=== PATIENT | female | born 1930 | race Caucasian/White ===

== ENCOUNTER 2016-07-25 23:35 | Emergency (ER) | payer MEDICARE, OTHER ==
[2014-02-26 12:47] VITALS: BMI 31.0
[~2016-07-25 23:35] MED LIST: ACETAMINOPHEN325 MG PO; ADVAIR 250/501 DISK INH; ALEVE220 MG PO; BAYER CHEWABLE81 MG PO; ELAVIL10 MG PO; GABAPENTIN100 MG PO; GLIPIZIDE10 MG PO; GLUCAGEN1 MG/VIAL IM; GLUCAGEN1 MG/VIAL SC; HUMULIN R100 U/ML SC; HYDROCODON-ACE1 EAC7 PO; HYZAAR 50-12.51 TAB PO; INSTA-GLUCOSE31 GM PO; IPRAT-ALBUT 0.5-3 ML UPD; LASIX20 MG PO; LASIX40 MG PO; LEVAQUIN250 MG PO; LISINOPRIL10 MG PO; LOPRESSOR25 MG PO; MACROBID100 MG PO; MELATONIN 3 MG1 TAB PO; MIRALAX17 GM PO; NORVASC10 MG PO; PLAVIX75 MG PO; PROTONIX40 MG PO; SALINE NASAL SP45 ML NS; TESSALON PERLE100 MG PO; TOPROL XL100 MG PO; VENTOLIN HFA18 GM INH; XANAX0.25 MG PO
== END 2016-07-26 02:25 | disposition home or self-care (01) ==
LOC: D.ER 23:35
DX: R07.9 Chest pain, unspecified (principal); M25.511 Pain in right shoulder; M25.551 Pain in right hip; I10 Essential (primary) hypertension; E78.5 Hyperlipidemia, unspecified; N28.9 Disorder of kidney and ureter, unspecified

== ENCOUNTER 2016-07-28 02:33 | Emergency (ER) | payer MEDICARE, OTHER ==
[2014-02-26 12:47] VITALS: BMI 31.0
== END 2016-07-28 05:00 | disposition home or self-care (01) ==
LOC: D.ER 02:33
DX: S01.81XA Laceration without foreign body of other part of head, initial encounter (principal); W19.XXXA Unspecified fall, initial encounter; S09.8XXA Other specified injuries of head, initial encounter; I10 Essential (primary) hypertension

== ENCOUNTER → 2016-08-01 09:31 | Outpatient (CLI) | payer MEDICARE, OTHER ==
[2014-02-26 12:47] VITALS: BMI 31.0
== END | disposition home or self-care (01) ==
LOC: D.CT 09:31
DX: E11.9 Type 2 diabetes mellitus without complications (principal)

== ENCOUNTER 2016-10-28 14:14 | Emergency (ER) | payer MEDICARE, OTHER ==
[2014-02-26 12:47] VITALS: BMI 31.0
[2016-10-28 15:06] LABS: BASOPHILS 0.8 % (0-2); EOSINOPHILS 5.9 % (0-7); HEMATOCRIT 37.3 % (36.0-48.0); HEMOGLOBIN 12.4 g/dL (12-16); IMMATURE GRANULOCYTES 0.4 % (0-5); LYMPHOCYTES 34.4 % (15-50); MCH 28.1 pg (26.0-34.0); MCHC 33.2 g/dL (31.0-37.0); MCV 84.6 fL (80.0-100.0); MEAN PLATELET VOLUME 8.4 fL (7.4-10.4); NEUTROPHILS 47.5 % (40-80); PLATELET COUNT 277 10x3/uL (130-400); RBC 4.41 10x6/uL (4.00-5.40); RDW 13.3 % (11.5-14.5); WBC 7.4 10x3/uL (4.8-10.8)
[2016-10-28 15:23] LABS: APPEARANCE CLEAR (CLEAR); COLOR YELLOW (YELLOW); LEUKOCYTE ESTERASE 1+ (NEGATIVE)
[2016-10-28 15:24] LABS: BILIRUBIN NEGATIVE (NEGATIVE); GLUCOSE NEGATIVE (NEGATIVE); KETONE NEGATIVE (NEGATIVE); NITRITE NEGATIVE (NEGATIVE); PROTEIN NEGATIVE (NEGATIVE); UROBILINOGEN NORMAL (NORMAL)
[2016-10-28 15:25] LABS: BACTERIA MODERATE /hpf (NONE SEEN); EPITHELIAL CELLS 0-5 /hpf (0-5); RED CELLS - URINE 0-5 /hpf (0-5); WHITE CELLS - URINE 0-5 /hpf (0-5)
[2016-10-28 15:38] LABS: ALBUMIN 3.4 g/dL (3.4-5.0); ALKALINE PHOSPHATASE 141 U/L (46-116); ALT (SGPT) 15 U/L (10-68); BILIRUBIN - TOTAL 0.24 mg/dL (0.2-1.3); CALC OSMOLALITY 275 mosm/kg (275-300); CALCIUM 10.6 mg/dL (8.5-10.1); CARBON DIOXIDE 23.7 mmol/L (21.0-32.0); CHLORIDE - SERUM 101 mmol/L (98-107); CREATININE - SERUM 1.9 mg/dL (0.6-1.3); POTASSIUM - SERUM 4.6 mmol/L (3.5-5.1); PROTEIN - SERUM 8.2 g/dL (6.4-8.2); SODIUM 133 mmol/L (136-145); UREA NITROGEN 21 mg/dL (7-18); eGFR NON AFRICAN AMERICAN 26 mL/min (90-120)
[2016-10-28 15:39] LABS: GLUCOSE 216 mg/dL (74-106)
[2016-10-28 15:50] LABS: CKMB 0.4 U/L (0.0-3.6); CREATINE KINASE 22 UL (21-215)
[2016-10-28 15:51] LABS: TROPONIN-I < 0.017 ng/mL (0.000-0.060)
== END 2016-10-28 18:30 | disposition home or self-care (01) ==
LOC: D.ER 14:14
PROVIDERS: Family Medicine
DX: R53.1 Weakness (principal); F41.9 Anxiety disorder, unspecified; I10 Essential (primary) hypertension; R00.1 Bradycardia, unspecified

== ENCOUNTER 2017-09-27 08:31 | Emergency (ER) | payer MEDICARE, OTHER ==
[~2017-09-27] VITALS: Ht 160 cm; Wt 81.8 kg
[2017-09-27 08:33] VITALS: Ht 160 cm; Wt 81.8 kg
[2017-09-27] MEDS ORDERED: CATAPRES0.1 MG PO (08:34)
[2017-09-27] MEDS ORDERED: LISINOPRIL10 MG PO (08:35)
[2017-09-27 09:37] LABS: BASOPHILS 1.3 % (0-2); EOSINOPHILS 7.1 % (0-7); HEMATOCRIT 40.9 % (36.0-48.0); HEMOGLOBIN 13.9 g/dL (12-16); IMMATURE GRANULOCYTES 0.3 % (0-5); LYMPHOCYTES 28.7 % (15-50); MCH 28.4 pg (26.0-34.0); MCV 83.5 fL (80.0-100.0); MEAN PLATELET VOLUME 8.7 fL (7.4-10.4); MONOCYTES 12.6 % (2-11); PLATELET COUNT 268 10x3/uL (130-400); RDW 13.8 % (11.5-14.5); WBC 7.9 10x3/uL (4.8-10.8)
[2017-09-27 09:53] LABS: ALKALINE PHOSPHATASE 123 U/L (46-116); ALT (SGPT) 20 U/L (10-68); BILIRUBIN - TOTAL 0.29 mg/dL (0.2-1.3); CALC OSMOLALITY 278 mosm/kg (275-300); CALCIUM 10.4 mg/dL (8.5-10.1); CARBON DIOXIDE 25.1 mmol/L (21.0-32.0); CHLORIDE - SERUM 101 mmol/L (98-107); CREATININE - SERUM 1.8 mg/dL (0.6-1.3); GLUCOSE 232 mg/dL (74-106); POTASSIUM - SERUM 4.8 mmol/L (3.5-5.1); PROTEIN - SERUM 7.7 g/dL (6.4-8.2); SODIUM 133 mmol/L (136-145); UREA NITROGEN 28 mg/dL (7-18); eGFR NON AFRICAN AMERICAN 28 mL/min (90-120)
[2017-09-27 09:55] LABS: APTT 27.4 SECONDS (22.8-39.4); INR 1.02 (0.85-1.17)
[2017-09-27 10:04] LABS: CREATINE KINASE 10 UL (21-215)
[2017-09-27 10:07] LABS: TROPONIN-I < 0.017 ng/mL (0.000-0.060)
[2017-09-27 15:01] VITALS: BP 135/57
== END 2017-09-27 15:02 ==
LOC: D.ER 08:31
PROVIDERS: Family Medicine
DX: I10 Essential (primary) hypertension (principal); R51 Headache; E11.9 Type 2 diabetes mellitus without complications; I50.9 Heart failure, unspecified; I49.3 Ventricular premature depolarization

== ENCOUNTER 2018-01-25 08:00 | Inpatient (IN) | payer MEDICARE, OTHER ==
[~2018-01-25] VITALS: Ht 160 cm; Wt 70.9 kg
--- NOTE | ~2018-01-25 | MORECARE ---
CASE MANAGEMENT DISCHARGE SUMMARY PATIENT: ROSY BANERJEE UNIT: [id number] ADM DATE: 01/25/18 AGE: 87 : [birth year] SEX: F ROOM/BED: D.9192 AUTHOR: TITO,DOC PHYSICIAN: REFERRING PHYSICIAN: TE TRAN MD DATE OF SERVICE: 02/01/18 Discharge Plan Patient Name: ROSY BANERJEE Facility: [facility] : 1930 Planned Disposition: Nursing Facility [facility] Cert Anticipated Discharge Date: 02/01/18 Discharge Date: Expected LOS: 7 Initial Reviewer: [id number] Initial Review Date: 01/25/2018 Generated: 02/01/18 12:48 pm Comments DCP- Discharge Planning Updated by [id number]: Morales Boogie on 01/31/18 3:[address] Patient Name: ROSY BANERJEE Encounter No: [id number] : 1930 Primary Insurance: MEDICARE A & B Anticipated DC Date: Planned Disposition: Nursing Facility [facility] Cert External Planned Provider: [facility], LONG TERM CARE MEDICAID BED DCP follow-up note: [facility] CALLED , REQUESTED UPDATE; CM REVIEWED LATEST NOTES WITH JUAN M. CM FAXED HOSPITAL CARE UPDATE TO JUAN M AT [facility], . FOR DISCHARGE, FAX DISCHARGE INFORMATION TO [place] AT [phone]; NURSE REPORT TO BE CALLED TO [facility] AT [phone]. [place] TO ARRANGE VAN TRANSPORTATION. Moralse Boogie CASE MANAGEMENT DCP- Discharge Planning Updated by [id number]: Morales Boogie on 01/26/18 9:[address] Patient Name: ROSY BANERJEE Encounter No: [id number] : 1930 Primary Insurance: MEDICARE A & B Anticipated DC Date: Planned Disposition: Nursing Facility [facility] Cert External Planned Provider: [facility], LONG TERM CARE MEDICAID BED DCP follow-up note: [facility] FAXED HOSPITAL CARE UPDATE TO [facility], . FOR DISCHARGE, FAX DISCHARGE INFORMATION TO [place] AT [phone]; NURSE REPORT TO BE CALLED TO [facility] AT [phone]. [place] TO ARRANGE VAN TRANSPORTATION. Morales Boogie, CASE MANAGEMENT DCP- Discharge Planning Updated by [id number]: Madelyn Ho on 01/25/18 9:[address] Patient Name: ROSY BANERJEE Admission Status: ER Accout number: [id number] Admission Date: 01-25-2018 : 1930 Admission Diagnosis: Attending: TE TRAN Current LOS: 1 Anticipated DC Date: Planned Disposition: Primary Insurance: MEDICARE A & B Discharge Planning Comments: CM MET WITH PATIENT IN THE ER ABOUT DC PLANNING/NEEDS. PATIENT PLANS TO RETURN TO [facility] WHEN DISCHARGED. STATES SHE LIVES THERE. PATIENT STATES IS AMBULATORY BUT USES A CANE OR PUSHES A WHEEL CHAIR AROUND. CM WILL FOLLOW AND ASSIST NEEDED WITH DC PLANNING NEEDS. Apple Press Operator: Madelyn Ho DCPIA - Discharge Planning Initial Assessment Updated by [email or web address]: Madelyn Ho on 01/25/18 10:24 am * Is the patient Alert and Oriented? Yes * PCP CHELSEA * Pharmacy [facility] * Preadmission Environment Senior Care Intermediate * Facility Name [facility] * ADLs Partial Dependent * Partial ADLs (Assistance needed) Ambulation * Equipment Cane Nebulizer Oxygen Wheelchair * List name and contact numbers for known caregivers / representatives who currently or will assist patient after discharge: FEI CARLISLE, DAUGHTER, * Community resources currently utilized None * Can the patient safely return to the preadmission environment? Yes * Has this patient been hospitalized within the prior 30 days at any hospital? No Last DP export: 01/31/18 3:59 Patient Name: ROSY BANERJEE Page 80905 at 1148 All edits/amendments must be made on the electronic document DICTATION DATE: 02/01/18 1148 DINKEY LOCOMOTIVE OPERATOR: VIOLET 02/01/18 1148 RPT#: [id number] DC DATE: STATUS: ADM IN [facility] [address] [place] [address] END OF REPORT
--- NOTE | ~2018-01-25 | MORECARE ---
CASE MANAGEMENT DISCHARGE SUMMARY PATIENT: ROSY BANERJEE UNIT: [id number] ADM DATE: 01/25/18 AGE: 87 : [birth year] SEX: F ROOM/BED: D.2128 AUTHOR: GENESIS FRANCIS PHYSICIAN: REFERRING PHYSICIAN: TE TRAN MD DATE OF SERVICE: 01/25/18 Discharge Plan Patient Name: ROSY BANERJEE Facility: [facility]:[place] : 1930 Planned Disposition: Anticipated Discharge Date: Discharge Date: Expected LOS: Initial Reviewer: [email or web address] Initial Review Date: 01/25/2018 Generated: 01/25/18 11:25 am DCPIA - Discharge Planning Initial Assessment Updated by [email or web address]: Madelyn Ho on 01/25/18 10:24 am * Is the patient Alert and Oriented? Yes * PCP CHELSEA * Pharmacy [facility] * Preadmission Environment Fuel Conversion Technician Fpc * Facility Name [facility] * ADLs Partial Dependent * Partial ADLs (Assistance needed) Ambulation * Equipment Cane Nebulizer Oxygen Wheelchair * List name and contact numbers for known caregivers / representatives who currently or will assist patient after discharge: EFI CARLISLE, DAUGHTER, * Community resources currently utilized None * Can the patient safely return to the preadmission environment? Yes * Has this patient been hospitalized within the prior 30 days at any hospital? No Patient Name: ROSY BANERJEE Page 31999 at 1025 All edits/amendments must be made on the electronic document DICTATION DATE: 01/25/18 1025 SORT WORKER: VIOLET 01/25/18 1025 RPT#: [id number] DC DATE: STATUS: ADM IN [facility] [address] [place] [address] END OF REPORT
--- NOTE | ~2018-01-25 | MORECARE ---
CASE MANAGEMENT DISCHARGE SUMMARY PATIENT: ROSY BANERJEE UNIT: [id number] ADM DATE: 01/25/18 AGE: 87 : [birth year] SEX: F ROOM/BED: D.2604 AUTHOR: TITO,DOC PHYSICIAN: REFERRING PHYSICIAN: TE TRAN MD DATE OF SERVICE: 02/03/18 Discharge Plan Patient Name: ROSY BANERJEE Facility: [facility]:[place] : 1930 Planned Disposition: Nursing Facility [facility] Cert Anticipated Discharge Date: 02/01/18 Discharge Date: 02/03/2018 Expected LOS: 7 Initial Reviewer: [id number] Initial Review Date: 01/25/2018 Generated: 02/03/18 7:18 pm Comments DCP- Discharge Planning Updated by [email or web address]: Alda Silva on 02/03/18 5:[address] LATE ENTRY 1030 TC TO [facility] TO ADVISE OF DISCHARGE. TC TO [phone] FAX [phone]. CM FAXED DISCHARGE SUMMARY AND MD DISCHARGE ORDERS. DCP- Discharge Planning Updated by [email or web address]: Morales Boogie on 02/01/18 11:[address] Patient Name: ROSY BANERJEE Encounter No: [id number] : 1930 Primary Insurance: MEDICARE A & B Anticipated DC Date: 02-01-2018 Planned Disposition: Nursing Facility [facility] Cert External Planned Provider: [facility], [facility] C[facility] MEDICAID BED DCP follow-up note: CM RECEIVED INPATIENT REHAB PRESCREENING ORDER, REVIEWED CHART WHICH INDICATES PT IS NOT ELIGIBLE FOR INPATIENT REHAB AND THAT THERAPY IN HOSPITAL HAS SIGNED OFF ALREADY. CM SPOKE TO PT IN ROOM, NOTIIFED OF ABOVE. PT REPORTS SHE WILL RETURN TO [facility] WHERE SHE LIVES. PT DOES NOT THINK SHE IS INTERESTED IN THERAPY SERVICES AND DOES NOT KNOW HOW MUCH SHE COULD DO ANYWAY. PT REPORTS BEING MOSTLY INDEPENDENT TAKING CARE OF HER PERSONAL NEEDS AT THE SNF AND EVEN MAKES HER OWN BED EACH MORNING. PT STATES SHE ASKED DR. TRAN FOR A COUPLE OF MORE DAYS IN THE HOSPITAL BECAUSE SHE DID NOT WANT TO BE DISCHARGED BACK TOO SOON AND REPORTS SHE USUALLY ONLY GETS 5 DAYS OF ANTIBIOTICS AND FELT SHE NEEDED 7 TO GET RID OF HER "BAD PNEUMONIA." IMPORTANT MESSAGE FROM MEDICARE PROVIDED AND EXPLAINED. CM CALLED AND SPOKE TO JUAN M OF [facility]. THEY WILL REVIEW UPDATE CM FAXED YESTERDAY. CM INFORMED JUAN M THAT PT MAY DISCHARGE TODAY. FOR DISCHARGE, FAX DISCHARGE INFORMATION TO [place] AT [phone]; NURSE REPORT TO BE CALLED TO [facility] AT [phone]. [place] TO ARRANGE VAN TRANSPORTATION. Morales Boogie CASE MANAGEMENT DCP- Discharge Planning Updated by [email or web address]: Morales Boogie on 01/31/18 3:[address] Patient Name: ROSY BANERJEE Encounter No: [id number] : 1930 Primary Insurance: MEDICARE A & B Anticipated DC Date: Planned Disposition: Nursing Facility [facility] Cert External Planned Provider: [facility], LONG TERM CARE MEDICAID BED DCP follow-up note: JUAN M OF [place] CALLED CM, REQUESTED UPDATE; CM REVIEWED LATEST NOTES WITH JUAN M. CM FAXED HOSPITAL CARE UPDATE TO JUAN M AT [facility], . FOR DISCHARGE, FAX DISCHARGE INFORMATION TO [facility] AT [phone]; NURSE REPORT TO BE CALLED TO [facility] AT [phone]. [place] TO ARRANGE VAN TRANSPORTATION. Morales Boogie CASE MANAGEMENT DCP- Discharge Planning Updated by [email or web address]: Morales Boogie on 01/26/18 9:[address] Patient Name: ROSY BANERJEE Encounter No: [id number] : 1930 Primary Insurance: MEDICARE A & B Anticipated DC Date: Planned Disposition: Nursing Facility [facility] Cert External Planned Provider: [facility], LONG TERM CARE MEDICAID BED DCP follow-up note: CM FAXED HOSPITAL CARE UPDATE TO JUAN M AT [facility], . FOR DISCHARGE, FAX DISCHARGE INFORMATION TO [facility] AT [phone]; NURSE REPORT TO BE CALLED TO [facility] AT [phone]. [facility] TO ARRANGE VAN TRANSPORTATION. Morales Boogie CASE MANAGEMENT DCP- Discharge Planning Updated by [email or web address]: Madelyn Ho on 01/25/18 9:[address] Patient Name: ROSY BANEREJE Admission Status: ER Accout number: [id number] Admission Date: 01-25-2018 : 1930 Admission Diagnosis: Attending: TE TRAN Current LOS: 1 Anticipated DC Date: Planned Disposition: Primary Insurance: MEDICARE A & B Discharge Planning Comments: CM MET WITH PATIENT IN THE ER ABOUT DC PLANNING/NEEDS. PATIENT PLANS TO RETURN TO [facility] WHEN DISCHARGED. STATES SHE LIVES THERE. PATIENT STATES IS AMBULATORY BUT USES A CANE OR PUSHES A WHEEL CHAIR AROUND. CM WILL FOLLOW AND ASSIST NEEDED WITH DC PLANNING NEEDS. Label Rewinder: Madelyn Ho DCPIA - Discharge Planning Initial Assessment Updated by [email or web address]: Madelyn Ho on 01/25/18 10:24 am * Is the patient Alert and Oriented? Yes * PCP CHELSEA * Pharmacy [facility] * Preadmission Environment [facility] * Facility Name [facility] * ADLs Partial Dependent * Partial ADLs (Assistance needed) Ambulation * Equipment Cane Nebulizer Oxygen Wheelchair * List name and contact numbers for known caregivers / representatives who currently or will assist patient after discharge: FEI CARLISLE, DAUGHTER, * Community resources currently utilized None * Can the patient safely return to the preadmission environment? Yes * Has this patient been hospitalized within the prior 30 days at any hospital? No Coverage Notice Reviewer: [id number] Noah Boogie Notice Issued Date-Time: 02/01/2018 11:00 Notice Type: IM Discharge Notice Notice Delivered To: Patient Relationship to Patient: Export Clerk Name: Delivery Method: HAND - Hand Delivered Zaynab Days: Prior Verbal Notification: Recipient Understood Notice: Yes Recipient Signature: Yes Med Rec Note Co-signed by Attending: Coverage Notice Comment: Last DP export: 02/01/18 11:08 Patient Name: ROSY BANERJEE Page 82432 at 1818 All edits/amendments must be made on the electronic document DICTATION DATE: 02/03/181816 QUILLER RUNNER: VIOLET 02/03/181816 RPT#: [id number] DC DATE:02/03/18 STATUS: DIS IN [facility] [address] [place] [id number] END OF REPORT
--- NOTE | ~2018-01-25 | MORECARE ---
CASE MANAGEMENT DISCHARGE SUMMARY PATIENT: ROSY BANERJEE UNIT: [id number] ADM DATE: 01/25/18 AGE: 87 : [birth year] SEX: F ROOM/BED: D.4121 AUTHOR: TITO,DOC PHYSICIAN: REFERRING PHYSICIAN: TE TRAN MD DATE OF SERVICE: 02/01/18 Discharge Plan Patient Name: ROSY BANERJEE Facility: [facility] : 1930 Planned Disposition: Nursing Facility [facility] Cert Anticipated Discharge Date: 02/01/18 Discharge Date: Expected LOS: 7 Initial Reviewer: [id number] Initial Review Date: 01/25/2018 Generated: 02/01/18 1:08 pm Comments DCP- Discharge Planning Updated by [email or web address]: Morales Boogie on 02/01/18 11:[address] Patient Name: ROSY BANERJEE Encounter No: [id number] : 1930 Primary Insurance: MEDICARE A & B Anticipated DC Date: 02-01-2018 Planned Disposition: Nursing Facility [facility] Cert External Planned Provider: [facility], LONG TERM CARE MEDICAID BED DCP follow-up note: CM RECEIVED INPATIENT REHAB PRESCREENING ORDER, REVIEWED CHART WHICH INDICATES PT IS NOT ELIGIBLE FOR INPATIENT REHAB AND THAT THERAPY IN HOSPITAL HAS SIGNED OFF ALREADY. CM SPOKE TO PT IN ROOM, NOTIIFED OF ABOVE. PT REPORTS SHE WILL RETURN TO [facility] WHERE SHE LIVES. PT DOES NOT THINK SHE IS INTERESTED IN THERAPY SERVICES AND DOES NOT KNOW HOW MUCH SHE COULD DO ANYWAY. PT REPORTS BEING MOSTLY INDEPENDENT TAKING CARE OF HER PERSONAL NEEDS AT THE PRISON AND EVEN MAKES HER OWN BED EACH MORNING. PT STATES SHE ASKED DR. TRAN FOR A COUPLE OF MORE DAYS IN THE HOSPITAL BECAUSE SHE DID NOT WANT TO BE DISCHARGED BACK TOO SOON AND REPORTS SHE USUALLY ONLY GETS 5 DAYS OF ANTIBIOTICS AND FELT SHE NEEDED 7 TO GET RID OF HER "BAD PNEUMONIA." IMPORTANT MESSAGE FROM MEDICARE PROVIDED AND EXPLAINED. CM CALLED AND SPOKE TO JUAN M OF [facility]. THEY WILL REVIEW UPDATE CM FAXED YESTERDAY. CM INFORMED JUAN M THAT PT MAY DISCHARGE TODAY. FOR DISCHARGE, FAX DISCHARGE INFORMATION TO [facility] AT [phone]; NURSE REPORT TO BE CALLED TO [facility] AT [phone]. [facility] TO ARRANGE VAN TRANSPORTATION. Morales Boogie CASE MANAGEMENT DCP- Discharge Planning Updated by [email or web address]: Morales Boogie on 01/31/18 3:[address] Patient Name: ROSY BANERJEE Encounter No: [id number] : 1930 Primary Insurance: MEDICARE A & B Anticipated DC Date: Planned Disposition: Nursing Facility [facility] Cert External Planned Provider: [facility], LONG TERM CARE MEDICAID BED DCP follow-up note: [facility] CALLED CM, REQUESTED UPDATE; CM REVIEWED LATEST NOTES WITH JUAN M. CM FAXED HOSPITAL CARE UPDATE TO [facility] AT [facility], . FOR DISCHARGE, FAX DISCHARGE INFORMATION TO [facility] AT [phone]; NURSE REPORT TO BE CALLED TO [facility] AT [phone]. [facility] TO ARRANGE VAN TRANSPORTATION. Morales Boogie CASE MANAGEMENT DCP- Discharge Planning Updated by [id number]: Morales Boogie on 01/26/18 9:[address] Patient Name: ROSY BANERJEE Encounter No: [id number] : 1930 Primary Insurance: MEDICARE A & B Anticipated DC Date: Planned Disposition: Nursing Facility [facility] External Planned Provider: [facility], LONG TERM CARE MEDICAID BED DCP follow-up note: CM FAXED HOSPITAL CARE UPDATE TO [facility] AT [facility], . FOR DISCHARGE, FAX DISCHARGE INFORMATION TO [facility] AT [phone]; [facility] AT [phone]. [facility] TO ARRANGE VAN TRANSPORTATION. Morales Boogie CASE MANAGEMENT DCP- Discharge Planning Updated by [id number]: Madelyn Ho on 01/25/18 9:[address] Patient Name: ROSY BANERJEE Admission Status: ER Accout number: [id number] Admission Date: 01-25-2018 : 1930 Admission Diagnosis: Attending: TE TRAN Current LOS: 1 Anticipated DC Date: Planned Disposition: Primary Insurance: MEDICARE A & B Discharge Planning Comments: CM MET WITH PATIENT IN THE ER ABOUT DC PLANNING/NEEDS. PATIENT PLANS TO RETURN TO [facility] WHEN DISCHARGED. STATES SHE LIVES THERE. PATIENT STATES IS AMBULATORY BUT USES A CANE OR PUSHES A WHEEL CHAIR AROUND. CM WILL FOLLOW AND ASSIST NEEDED WITH DC PLANNING NEEDS. Elevator Constructor Electric: Madelyn [place] DCPIA - Discharge Planning Initial Assessment Updated by [email or web address]: Madelyn Ho on 01/25/18 10:24 am * Is the patient Alert and Oriented? Yes * PCP CHELSEA * Pharmacy [facility] * Preadmission Environment Exterminator Long Term * Facility Name [facility] * ADLs Partial Dependent * Partial ADLs (Assistance needed) Ambulation * Equipment Cane Nebulizer Oxygen Wheelchair * List name and contact numbers for known caregivers / representatives who currently or will assist patient after discharge: FEI CARLISLE, DAUGHTER, * Community resources currently utilized None * Can the patient safely return to the preadmission environment? Yes * Has this patient been hospitalized within the prior 30 days at any hospital? No Coverage Notice Reviewer: [id number] Noah Boogie Notice Issued Date-Time: 02/01/2018 11:00 Notice Type: IM Discharge Notice Notice Delivered To: Patient Relationship to Patient: Optometric Coordinator Name: Delivery Method: HAND - Hand Delivered Zaynab Days: Prior Verbal Notification: Recipient Understood Notice: Yes Recipient Signature: Yes Med Rec Note Co-signed by Attending: Coverage Notice Comment: Last DP export: 02/01/18 10:48 Patient Name: ROSY BANERJEE Page 55830 at 1208 All edits/amendments must be made on the electronic document DICTATION DATE: 02/01/18 1208 RESIDENTIAL RECYCLE DRIVER: VIOLET 02/01/18 1208 RPT#: [id number] DC DATE: STATUS: ADM IN [facility] [address] [place] [address] END OF REPORT
--- NOTE | ~2018-01-25 | MORECARE ---
CASE MANAGEMENT DISCHARGE SUMMARY PATIENT: ROSY BANERJEE UNIT: [id number] ADM DATE: 01/25/18 AGE: 87 : [birth year] SEX: F ROOM/BED: D.8849 AUTHOR: TITO,DOC PHYSICIAN: REFERRING PHYSICIAN: TE TRAN MD DATE OF SERVICE: 01/31/18 Discharge Plan Patient Name: ROSY BANERJEE Facility: [facility] : 1930 Planned Disposition: Nursing Facility [facility] Cert Anticipated Discharge Date: Discharge Date: Expected LOS: Initial Reviewer: [id number] Initial Review Date: 01/25/2018 Generated: 01/31/18 5:59 pm Comments DCP- Discharge Planning Updated by [id number]: Morales Boogie on 01/31/18 3:[address] Patient Name: ROSY BANERJEE Encounter No: [id number] : 1930 Primary Insurance: MEDICARE A & B Anticipated DC Date: Planned Disposition: Nursing Facility [facility] Cert External Planned Provider: [facility], LONG TERM CARE MEDICAID BED DCP follow-up note: [facility] CALLED , REQUESTED UPDATE; CM REVIEWED LATEST NOTES WITH JUAN M. CM FAXED HOSPITAL CARE UPDATE TO [facility], . FOR DISCHARGE, FAX DISCHARGE INFORMATION TO [facility] AT [phone]; NURSE REPORT TO BE CALLED TO [facility] AT [phone]. [facility] TO ARRANGE VAN TRANSPORTATION. Morales Boogie, CASE MANAGEMENT DCP- Discharge Planning Updated by [email or web address]: Morales Boogie on 01/26/18 9:[address] Patient Name: ROSY BANERJEE Encounter No: [id number] : 1930 Primary Insurance: MEDICARE A & B Anticipated DC Date: Planned Disposition: Nursing Facility [facility] Cert External Planned Provider: [facility], LONG TERM CARE MEDICAID BED DCP follow-up note: CM FAXED HOSPITAL CARE UPDATE TO [facility], . FOR DISCHARGE, FAX DISCHARGE INFORMATION TO [facility] AT [phone]; NURSE REPORT TO BE CALLED TO [facility] AT [phone]. [facility] TO ARRANGE VAN TRANSPORTATION. Morales Boogie CASE MANAGEMENT DCP- Discharge Planning Updated by [id number]: Madelyn Ho on 01/25/18 9:[address] Patient Name: ROSY BANERJEE Admission Status: ER Accout number: [id number] Admission Date: 01-25-2018 : 1930 Admission Diagnosis: Attending: TE TRAN Current LOS: 1 Anticipated DC Date: Planned Disposition: Primary Insurance: MEDICARE A & B Discharge Planning Comments: CM MET WITH PATIENT IN THE ER ABOUT DC PLANNING/NEEDS. PATIENT PLANS TO RETURN TO [facility] WHEN DISCHARGED. STATES SHE LIVES THERE. PATIENT STATES IS AMBULATORY BUT USES A CANE OR PUSHES A WHEEL CHAIR AROUND. CM WILL FOLLOW AND ASSIST NEEDED WITH DC PLANNING NEEDS. Taxi Servicer: Madelyn Ho DCPIA - Discharge Planning Initial Assessment Updated by [id number]: Madelyn Ho on 01/25/18 10:24 am * Is the patient Alert and Oriented? Yes * PCP CHELSEA * Pharmacy [facility] * Preadmission Environment Intermediate Custodial * Facility Name [facility] * ADLs Partial Dependent * Partial ADLs (Assistance needed) Ambulation * Equipment Cane Nebulizer Oxygen Wheelchair * List name and contact numbers for known caregivers / representatives who currently or will assist patient after discharge: FEI CARLISLE, DAUGHTER, * Community resources currently utilized None * Can the patient safely return to the preadmission environment? Yes * Has this patient been hospitalized within the prior 30 days at any hospital? No Last DP export: 01/26/18 9:30 Patient Name: ROSY BANERJEE Page 66623 at 165 All edits/amendments must be made on the electronic document DICTATION DATE: 01/31/181658 CONSTRUCTION INSPECTOR: VIOLET 01/31/181658 RPT#: [id number] DC DATE: STATUS: ADM IN [facility] [address] [place] [address] END OF REPORT
--- NOTE | ~2018-01-25 | MORECARE ---
CASE MANAGEMENT DISCHARGE SUMMARY PATIENT: ROSY BANERJEE UNIT: [id number] ADM DATE: 01/25/18 AGE: 87 : [birth year] SEX: F ROOM/BED: D.4726 AUTHOR: TITO,DOC PHYSICIAN: REFERRING PHYSICIAN: TE TRAN MD DATE OF SERVICE: 01/26/18 Discharge Plan Patient Name: ROSY BANERJEE Facility: [facility] : 1930 Planned Disposition: Anticipated Discharge Date: Discharge Date: Expected LOS: Initial Reviewer: [email or web address] Initial Review Date: 01/25/2018 Generated: 01/26/18 11:01 am DCP- Discharge Planning Updated by [email or web address]: Madelyn Ho on 01/25/18 9:[address] Patient Name: ROSY BANERJEE Admission Status: ER Accout number: [id number] Admission Date: 01-25-2018 : 1930 Admission Diagnosis: Attending: TE TRAN Current LOS: 1 Anticipated DC Date: Planned Disposition: Primary Insurance: MEDICARE A & B Discharge Planning Comments: CM MET WITH PATIENT IN THE ER ABOUT DC PLANNING/NEEDS. PATIENT PLANS TO RETURN TO [facility] WHEN DISCHARGED. STATES SHE LIVES THERE. PATIENT STATES IS AMBULATORY BUT USES A CANE OR PUSHES A WHEEL CHAIR AROUND. CM WILL FOLLOW AND ASSIST NEEDED WITH DC PLANNING NEEDS. Pump Erector Helper: Madelyn Ho DCPIA - Discharge Planning Initial Assessment Updated by [id number]: Madelyn Ho on 01/25/18 10:24 am * Is the patient Alert and Oriented? Yes * PCP CHELSEA * Pharmacy [facility] * Preadmission Environment [facility] * Facility Name [facility] * ADLs Partial Dependent * Partial ADLs (Assistance needed) Ambulation * Equipment Cane Nebulizer Oxygen Wheelchair * List name and contact numbers for known caregivers / representatives who currently or will assist patient after discharge: FEI CARLISLE, DAUGHTER, * Community resources currently utilized None * Can the patient safely return to the preadmission environment? Yes * Has this patient been hospitalized within the prior 30 days at any hospital? No External Providers [facility] Next Contact Date: 01/26/2018 Service Request Date: Service Type: Resolution: Reviewer: Comments: Last DP export: 01/25/18 9:34 Patient Name: ROSY BANERJEE Page 47359 at 1001 All edits/amendments must be made on the electronic document DICTATION DATE: 01/26/18 1000 PSYCH ARNP: VIOLET 01/26/18 1000 RPT#: [id number] DC DATE: STATUS: ADM IN [facility] [address] [place] [address] END OF REPORT
--- NOTE | ~2018-01-25 | EC ---
PATIENT:ROSY BANERJEE DATE OF SERVICE: 01/25/18 SEX: F MEDICAL RECORD: [id number] DATE OF : [birth year] LOCATION:D.M2 D.212 AGE OF PATIENT: 87 ADMISSION DATE: 01/25/18 REFERRING PHYSICIAN: INTERPRETING PHYSICIAN: AZAM PORTER MD ECHOCARDIOGRAM REPORT ECHO CHARGES 4 ECHO COMPLETE Date: 01/25/18 CLINICAL DIAGNOSIS: SOB/ELEVATED BNP ECHOCARDIOGRAPHIC MEASUREMENTS (adult normal given) AC root (d.<3.7cm) 3.9 cm LV Septum d (<1.2 cm> 1.6 cm Valve Excursion 1.6 cm LV Septum (systole) 1.8 cm Left Atria (s.<4.0cm> 4.6 cm LVPW d(<1.2cm) 1.6 cm RV (d.<2.3cm) 3.9 cm LVPW (sytole) 2.0 cm LV diastole(<5.6CM) 4.8 cm MV E-F(>70mm/sec) cm LV systole 3.3 cm LVOT Diameter 1.7 cm MV exc.(>10mm) 1.2 cm Est.ejection fraction (50-75%) % DOPPLER: LVIT cm/sec A 149 cm/sec E 173 cm/sec LA cm/sec RVSP 70 mmHg LVOT 103 cm/sec AOP1/2T m/s Asc. Ao 228 cm/sec RVOT 82 cm/sec RA cm/sec PA 144 cm/sec AV Gradient Peak 20.80mmHg AV Mean 10.03mmHg AV Area 1.4 cm MV Gradient Peak 16.39mmHg MV Mean 5.38 mmHg MV Area cm COMMENTS: Reel Hooker: Tate LICEA Meter Technician: 1 Dr. Porter TAPE# PACS Pericardial Effusion N DATE OF SERVICE: 01/25/2018 FINDINGS: 1. Left ventricular chamber size is within normal limits. Left ventricular systolic function is normal. Overall ejection fraction is estimated at 60%. 2. Left atrium, right atrium, and right ventricular sizes are dilated. Left atrium measures 4.6 cm. 3. Valvular structures: Aortic valve demonstrates mild calcific aortic stenosis. Valve area calculates to 1.4 cm-squared. There is a gradient of 20 mm across the valve. The remaining valvular structures have normal structure ECHOCARDIOGRAM REPORT [id number] LAFEVERS,CLEDA and motion. 4. Doppler interrogation else peralta reveals mild aortic insufficiency, [id number] mitral regurgitation, and moderate tricuspid regurgitation. No other valvular insufficiency or stenosis. Pulmonary systolic pressure is estimated at 70 mmHg. 5. No evidence of pericardial effusion or left ventricular thrombus. TRANSINT:[id number] Voice Confirmation ID: [id number] DOCUMENT ID: [id number] AZMA PORTER MD at 0941 CC: [id number] DICTATION DATE: 01/25/18 1539 [employer] DISPATCHER: 01/25/18 1852 ADM IN [facility] [address] [id number]
--- NOTE | ~2018-01-25 | MORECARE ---
CASE MANAGEMENT DISCHARGE SUMMARY PATIENT: ROSY BANERJEE UNIT: [id number] ADM DATE: 01/25/18 AGE: 87 : [birth year] SEX: F ROOM/BED: D.5820 AUTHOR: TITODOC PHYSICIAN: REFERRING PHYSICIAN: TE TRAN MD DATE OF SERVICE: 01/25/18 Discharge Plan Patient Name: ROSY BANERJEE Facility: [facility]:[place] : 1930 Planned Disposition: Anticipated Discharge Date: Discharge Date: Expected LOS: Initial Reviewer: [email or web address] Initial Review Date: 01/25/2018 Generated: 01/25/18 11:34 am Comments DCP- Discharge Planning Updated by [email or web address]: Madelyn Ho on 01/25/18 9:[address] Patient Name: ROSY BANERJEE Admission Status: ER Accout number: [id number] Admission Date: 01-25-2018 : 1930 Admission Diagnosis: Attending: TE TRAN Current LOS: 1 Anticipated DC Date: Planned Disposition: Primary Insurance: MEDICARE A & B Discharge Planning Comments: CM MET WITH PATIENT IN THE ER ABOUT DC PLANNING/NEEDS. PATIENT PLANS TO RETURN TO [facility] WHEN DISCHARGED. STATES SHE LIVES THERE. PATIENT STATES IS AMBULATORY BUT USES A CANE OR PUSHES A WHEEL CHAIR AROUND. CM WILL FOLLOW AND ASSIST NEEDED WITH DC PLANNING NEEDS. Change Lead: Madelyn Ho DCPIA - Discharge Planning Initial Assessment Updated by [email or web address]: Madelyn Ho on 01/25/18 10:24 am * Is the patient Alert and Oriented? Yes * PCP CHELSEA * Pharmacy [facility] * Preadmission Environment [facility] * Facility Name [facility] * ADLs Partial Dependent * Partial ADLs (Assistance needed) Ambulation * Equipment Cane Nebulizer Oxygen Wheelchair * List name and contact numbers for known caregivers / representatives who currently or will assist patient after discharge: FEI CARLISLE, DAUGHTER, * Community resources currently utilized None * Can the patient safely return to the preadmission environment? Yes * Has this patient been hospitalized within the prior 30 days at any hospital? No Last DP export: 01/25/18 9:25 Patient Name: ROSY BANERJEE Page [phone] at 1034 All edits/amendments must be made on the electronic document DICTATION DATE: 01/25/18 103 FLOOR CARE SPECIALIST: VIOLET 01/25/18 1034 RPT#: [id number] DC DATE: STATUS: ADM IN [facility] [address] [place] [address] END OF REPORT
--- NOTE | ~2018-01-25 | MORECARE ---
CASE MANAGEMENT DISCHARGE SUMMARY PATIENT: ROSY BANERJEE UNIT: [id number] ADM DATE: 01/25/18 AGE: 87 : [birth year] SEX: F ROOM/BED: D.5610 AUTHOR: TITO,DOC PHYSICIAN: REFERRING PHYSICIAN: TE TRAN MD DATE OF SERVICE: 02/05/18 Discharge Plan Patient Name: ROSY BANERJEE Facility: [facility]:[place] : 1930 Planned Disposition: Nursing Facility DICK Cert Anticipated Discharge Date: 02/03/18 Discharge Date: 02/03/2018 Expected LOS: 9 Initial Reviewer: [email or web address] Initial Review Date: 01/25/2018 Generated: 02/05/18 12:21 pm Comments DCP- Discharge Planning Updated by [id number]: Alda Silva on 02/03/18 5:[address] LATE ENTRY 1030 TC TO [facility] TO ADVISE OF DISCHARGE. TC TO [phone] FAX [phone]. CM FAXED DISCHARGE SUMMARY AND MD DISCHARGE ORDERS. DCP- Discharge Planning Updated by [email or web address]: Morales Boogie on 02/01/18 11:[address] Patient Name: ROSY BANERJEE Encounter No: [id number] : 1930 Primary Insurance: MEDICARE A & B Anticipated DC Date: 02-01-2018 Planned Disposition: Nursing Facility D[facility] Cert External Planned Provider: [facility], RESIDENTIAL CARE MEDICAID BED DCP follow-up note: CM RECEIVED INPATIENT REHAB PRESCREENING ORDER, REVIEWED CHART WHICH INDICATES PT IS NOT ELIGIBLE FOR INPATIENT REHAB AND THAT THERAPY IN HOSPITAL HAS SIGNED OFF ALREADY. CM SPOKE TO PT IN ROOM, NOTIIFED OF ABOVE. PT REPORTS SHE WILL RETURN TO [facility] WHERE SHE LIVES. PT DOES NOT THINK SHE IS INTERESTED IN THERAPY SERVICES AND DOES NOT KNOW HOW MUCH SHE COULD DO ANYWAY. PT REPORTS BEING MOSTLY INDEPENDENT TAKING CARE OF HER PERSONAL NEEDS AT THE LONG TERM AND EVEN MAKES HER OWN BED EACH MORNING. PT STATES SHE ASKED DR. TRAN FOR A COUPLE OF MORE DAYS IN THE HOSPITAL BECAUSE SHE DID NOT WANT TO BE DISCHARGED BACK TOO SOON AND REPORTS SHE USUALLY ONLY GETS 5 DAYS OF ANTIBIOTICS AND FELT SHE NEEDED 7 TO GET RID OF HER "BAD PNEUMONIA." IMPORTANT MESSAGE FROM MEDICARE PROVIDED AND EXPLAINED. CM CALLED AND SPOKE TO JUAN M OF [facility]. THEY WILL REVIEW UPDATE CM FAXED YESTERDAY. CM INFORMED JUAN M THAT PT MAY DISCHARGE TODAY. FOR DISCHARGE, FAX DISCHARGE INFORMATION TO [facility] AT [phone]; NURSE REPORT TO BE CALLED TO [facility] AT [phone]. [facility] TO ARRANGE VAN TRANSPORTATION. Morales Boogie CASE MANAGEMENT DCP- Discharge Planning Updated by [id number]: Morales Boogie on 01/31/18 3:[address] Patient Name: ROSY BANERJEE Encounter No: [id number] : 1930 Primary Insurance: MEDICARE A & B Anticipated DC Date: Planned Disposition: Nursing Facility [facility] Cert External Planned Provider: [facility], LONG TERM CARE MEDICAID BED DCP follow-up note: JUAN M OF [facility] CALLED CM, REQUESTED UPDATE; CM REVIEWED LATEST NOTES WITH JUAN M. CM FAXED HOSPITAL CARE UPDATE TO JUAN M AT [facility], . FOR DISCHARGE, FAX DISCHARGE INFORMATION TO [facility] AT [phone]; NURSE REPORT TO BE CALLED TO [facility] AT [phone]. [facility] TO ARRANGE VAN TRANSPORTATION. Morales Boogie CASE MANAGEMENT DCP- Discharge Planning Updated by [email or web address]: Morales Boogie on 01/26/18 9:[address] Patient Name: ROSY BANERJEE Encounter No: [id number] : 1930 Primary Insurance: MEDICARE A & B Anticipated DC Date: Planned Disposition: Nursing Facility [facility] Cert External Planned Provider: [facility], LONG TERM CARE MEDICAID BED DCP follow-up note: CM FAXED HOSPITAL CARE UPDATE TO JUAN M AT [facility], . FOR DISCHARGE, FAX DISCHARGE INFORMATION TO [facility] AT [phone]; NURSE REPORT TO BE CALLED TO [facility] AT [phone]. [facility] TO ARRANGE VAN TRANSPORTATION. Morales Boogie CASE MANAGEMENT DCP- Discharge Planning Updated by [id number]: Madelyn Ho on 01/25/18 9:[address] Patient Name: ROSY BANERJEE Admission Status: ER Accout number: [id number] Admission Date: 01-25-2018 : 1930 Admission Diagnosis: Attending: TE TRAN Current LOS: 1 Anticipated DC Date: Planned Disposition: Primary Insurance: MEDICARE A & B Discharge Planning Comments: CM MET WITH PATIENT IN THE ER ABOUT DC PLANNING/NEEDS. PATIENT PLANS TO RETURN TO [facility] WHEN DISCHARGED. STATES SHE LIVES THERE. PATIENT STATES IS AMBULATORY BUT USES A CANE OR PUSHES A WHEEL CHAIR AROUND. CM WILL FOLLOW AND ASSIST NEEDED WITH DC PLANNING NEEDS. Nail Technician Teacher: Madelyn Ho DCPIA - Discharge Planning Initial Assessment Updated by [email or web address]: Madelyn Ho on 01/25/18 10:24 am * Is the patient Alert and Oriented? Yes * PCP CHELSEA * Pharmacy [facility] * Preadmission Environment [facility] * Facility Name [facility] * ADLs Partial Dependent * Partial ADLs (Assistance needed) Ambulation * Equipment Cane Nebulizer Oxygen Wheelchair * List name and contact numbers for known caregivers / representatives who currently or will assist patient after discharge: FEI CARLISLE, DAUGHTER, * Community resources currently utilized None * Can the patient safely return to the preadmission environment? Yes * Has this patient been hospitalized within the prior 30 days at any hospital? No Coverage Notice Reviewer: [email or web address] Noah Boogie Notice Issued Date-Time: 02/01/2018 11:00 Notice Type: IM Discharge Notice Notice Delivered To: Patient Relationship to Patient: [employer] Superintendent Name: Delivery Method: HAND - Hand Delivered Zaynab Days: Prior Verbal Notification: Recipient Understood Notice: Yes Recipient Signature: Yes Med Rec Note Co-signed by Attending: Coverage Notice Comment: Last DP export: 02/03/18 5:18 Patient Name: ROSY BANERJEE Page [phone] at 1121 All edits/amendments must be made on the electronic document DICTATION DATE: 02/05/18 1121 EMT P: VIOLET 02/05/18 1121 RPT#: [id number] DC DATE:02/03/18 STATUS: DIS IN [facility] [address] [place] [address] END OF REPORT
--- NOTE | ~2018-01-25 | MORECARE ---
CASE MANAGEMENT DISCHARGE SUMMARY PATIENT: ROSY BANERJEE UNIT: [id number] ADM DATE: 01/25/18 AGE: 87 : [birth year] SEX: F ROOM/BED: D.7154 AUTHOR: TITO,DOC PHYSICIAN: REFERRING PHYSICIAN: TE TRAN MD DATE OF SERVICE: 01/26/18 Discharge Plan Patient Name: ROSY BANERJEE Facility: [facility] : 1930 Planned Disposition: Nursing Facility DICK Cert Anticipated Discharge Date: Discharge Date: Expected LOS: Initial Reviewer: [email or web address] Initial Review Date: 01/25/2018 Generated: 01/26/18 11:30 am Comments DCP- Discharge Planning Updated by [email or web address]: Morales Boogie on 01/26/18 9:[address] Patient Name: ROSY BANERJEE Encounter No: [id number] : 1930 Primary Insurance: MEDICARE A & B Anticipated DC Date: Planned Disposition: Nursing Facility [facility] Cert External Planned Provider: [facility], LONG TERM CARE MEDICAID BED DCP follow-up note: CM FAXED HOSPITAL CARE UPDATE TO [facility], . FOR DISCHARGE, FAX DISCHARGE INFORMATION TO [facility] AT [phone]; NURSE REPORT TO BE CALLED TO [facility] AT [phone]. [facility] TO ARRANGE VAN TRANSPORTATION. DAR Felix DCP- Discharge Planning Updated by [email or web address]: Madelyn Ho on 01/25/18 9:[address] Patient Name: ROSY BANERJEE Admission Status: ER Accout number: [id number] Admission Date: 01-25-2018 : 1930 Admission Diagnosis: Attending: TE TRAN Current LOS: 1 Anticipated DC Date: Planned Disposition: Primary Insurance: MEDICARE A & B Discharge Planning Comments: CM MET WITH PATIENT IN THE ER ABOUT DC PLANNING/NEEDS. PATIENT PLANS TO RETURN TO [facility] WHEN DISCHARGED. STATES SHE LIVES THERE. PATIENT STATES IS AMBULATORY BUT USES A CANE OR PUSHES A WHEEL CHAIR AROUND. CM WILL FOLLOW AND ASSIST NEEDED WITH DC PLANNING NEEDS. Radiology Technologist: Madelyn Ho DCPIA - Discharge Planning Initial Assessment Updated by [email or web address]: Madelyn Ho on 01/25/18 10:24 am * Is the patient Alert and Oriented? Yes * PCP CHELSEA * Pharmacy [facility] * Preadmission Environment [employer] Supervisor Fdc * Facility Name [facility] * ADLs Partial Dependent * Partial ADLs (Assistance needed) Ambulation * Equipment Cane Nebulizer Oxygen Wheelchair * List name and contact numbers for known caregivers / representatives who currently or will assist patient after discharge: FEI CARLISLE, DAUGHTER, * Community resources currently utilized None * Can the patient safely return to the preadmission environment? Yes * Has this patient been hospitalized within the prior 30 days at any hospital? No Last DP export: 01/26/18 9:01 Patient Name: ROSY BANERJEE Page [id number] at 1030 All edits/amendments must be made on the electronic document DICTATION DATE: 01/26/18 1030 SENIOR MEDIA PLANNER: VIOLET 01/26/18 1030 RPT#: [id number] DC DATE: STATUS: ADM IN [facility] [address] [place] [address] END OF REPORT
[~2018-01-25 08:00] MED LIST changes: +CATAPRES0.1 MG PO
[2018-01-25 09:10] VITALS: BP 176/80
[2018-01-25 09:24] LABS: BASOPHILS 0.6 % (0-2); EOSINOPHILS 4.6 % (0-7); HEMATOCRIT 39.6 % (36.0-48.0); HEMOGLOBIN 13.3 g/dL (12-16); IMMATURE GRANULOCYTES 0.4 % (0-5); LYMPHOCYTES 22.8 % (15-50); MCH 27.8 pg (26.0-34.0); MCHC 33.6 g/dL (31.0-37.0); MCV 82.8 fL (80.0-100.0); MEAN PLATELET VOLUME 8.6 fL (7.4-10.4); MONOCYTES 9.1 % (2-11); NEUTROPHILS 62.5 % (40-80); PLATELET COUNT 245 10x3/uL (130-400); RBC 4.78 10x6/uL (4.00-5.40); RDW 14.5 % (11.5-14.5)
[2018-01-25 09:58] LABS: ALBUMIN 3.3 g/dL (3.4-5.0); ANION GAP 14.2 mmol/L (8-16); BILIRUBIN - TOTAL 0.24 mg/dL (0.2-1.3); CALCIUM 10.3 mg/dL (8.5-10.1); CARBON DIOXIDE 25.2 mmol/L (21.0-32.0); CREATININE - SERUM 1.2 mg/dL (0.6-1.3); POTASSIUM - SERUM 4.4 mmol/L (3.5-5.1); PROTEIN - SERUM 8.4 g/dL (6.4-8.2)
[2018-01-25 10:06] LABS: THYROID STIMULATING HORMONE 3.61 uIU/mL (0.36-3.74); TROPONIN-I 0.019 ng/mL (0.000-0.060)
[2018-01-25 10:19] VITALS: BP 175/65
[2018-01-25 10:36] LABS: APPEARANCE CLEAR (CLEAR); BILIRUBIN NEGATIVE (NEGATIVE); COLOR STRAW (YELLOW); GLUCOSE 50 mg/dL (NEGATIVE); KETONE NEGATIVE (NEGATIVE); NITRITE NEGATIVE (NEGATIVE); PROTEIN 3+ mg/dL (NEGATIVE); UROBILINOGEN NORMAL (NORMAL)
[2018-01-25 10:37] LABS: BACTERIA FEW /hpf (NONE SEEN); EPITHELIAL CELLS RARE /hpf (0-5); RED CELLS - URINE 0-5 /hpf (0-5)
[2018-01-25 11:02] VITALS: BP 147/64
[2018-01-25 11:07] VITALS: BP 146/74; BMI 27.3; BMI 30.1
[2018-01-25 13:00] VITALS: Ht 160 cm; Wt 70.9 kg
[2018-01-25] MEDS ORDERED: XALATAN 0.0052.5 ML EACH EYE (14:09)
[2018-01-25] MEDS ORDERED: LUBRICANT EYE D15 M2 EACH EYE (14:09)
[2018-01-25] MEDS ORDERED: ALPHAGAN 0.2%5 ML EACH EYE (14:10)
[2018-01-25 15:00] VITALS: BP 133/59
[2018-01-25] MEDS ORDERED: BUMETANIDE0.5 MG PO (15:06)
[2018-01-25] MEDS ORDERED: NORVASC10 MG PO (15:06)
[2018-01-25] MEDS ORDERED: HYDROCODON-ACE1 EAC7 PO (15:07)
[2018-01-25] MEDS ORDERED: GABAPENTIN100 MG PO (15:07)
[2018-01-25] MEDS ORDERED: LOPERAMIDE HCL2 MG PO (15:08)
[2018-01-25] MEDS ORDERED: KLONOPIN0.5 MG PO (15:09)
[2018-01-25] MEDS ORDERED: LEVEMIR IN100 UNITS/ SC (15:10)
[2018-01-25] MEDS ORDERED: LISINOPRIL5 MG PO (15:11)
[2018-01-25] MEDS ORDERED: OMEPRAZOLE20 M1 PO (15:13)
[2018-01-25] MEDS ORDERED: TOPROL XL50 MG PO (15:13)
[2018-01-25 20:00] VITALS: BP 126/58
[2018-01-26] VITALS: BP 133/54
[2018-01-26 04:00] VITALS: BP 168/69
[2018-01-26 05:46] LABS: BASOPHILS 0.8 % (0-2); EOSINOPHILS 9.6 % (0-7); HEMATOCRIT 35.5 % (36.0-48.0); HEMOGLOBIN 11.8 g/dL (12-16); IMMATURE GRANULOCYTES 0.2 % (0-5); LYMPHOCYTES 35.5 % (15-50); MCH 27.3 pg (26.0-34.0); MCHC 33.2 g/dL (31.0-37.0); MCV 82.2 fL (80.0-100.0); MEAN PLATELET VOLUME 8.5 fL (7.4-10.4); MONOCYTES 14.1 % (2-11); NEUTROPHILS 39.8 % (40-80); PLATELET COUNT 278 10x3/uL (130-400); RBC 4.32 10x6/uL (4.00-5.40); RDW 14.5 % (11.5-14.5)
[2018-01-26 05:47] LABS: WBC 9.4 10x3/uL (4.8-10.8)
[2018-01-26 06:19] LABS: ANION GAP 15.6 mmol/L (8-16); BILIRUBIN - TOTAL 0.21 mg/dL (0.2-1.3); CALCIUM 10.4 mg/dL (8.5-10.1); CARBON DIOXIDE 25.6 mmol/L (21.0-32.0); CHOL - HDL RATIO 7.6 ratio (2.3-4.1); CREATININE - SERUM 1.4 mg/dL (0.6-1.3); LDL-HDL RATIO 4.9 ratio (1.5-3.5); POTASSIUM - SERUM 4.2 mmol/L (3.5-5.1); PROTEIN - SERUM 7.3 g/dL (6.4-8.2)
[2018-01-26 08:34] VITALS: BP 150/67
[2018-01-26 11:28] VITALS: BP 142/62
[2018-01-26 16:09] VITALS: BP 105/48
[2018-01-26 20:00] VITALS: BP 109/71
[2018-01-27] VITALS (7 sets, daily range): BP systolic 101–173; BP diastolic 56–87
[2018-01-27 05:41] LABS: BASOPHILS 0.7 % (0-2); EOSINOPHILS 5.2 % (0-7); HEMATOCRIT 35.2 % (36.0-48.0); HEMOGLOBIN 11.9 g/dL (12-16); IMMATURE GRANULOCYTES 0.3 % (0-5); LYMPHOCYTES 27.7 % (15-50); MCH 27.5 pg (26.0-34.0); MCHC 33.8 g/dL (31.0-37.0); MCV 81.3 fL (80.0-100.0); MEAN PLATELET VOLUME 9.1 fL (7.4-10.4); MONOCYTES 13.5 % (2-11); NEUTROPHILS 52.6 % (40-80); PLATELET COUNT 311 10x3/uL (130-400); RBC 4.33 10x6/uL (4.00-5.40); WBC 11.4 10x3/uL (4.8-10.8)
[2018-01-27 05:48] LABS: CALCIUM 10.6 mg/dL (8.5-10.1); CREATININE - SERUM 1.4 mg/dL (0.6-1.3)
[2018-01-28 00:30] VITALS: BP 156/61
[2018-01-28 04:30] VITALS: BP 152/61
[2018-01-28 09:32] VITALS: BP 174/59
[2018-01-28 17:22] VITALS: BP 131/60
[2018-01-28 20:30] VITALS: BP 137/54
[2018-01-29 00:30] VITALS: BP 144/61
[2018-01-29 04:30] VITALS: BP 172/69
[2018-01-29 08:24] VITALS: BP 126/66
[2018-01-29 10:59] VITALS: BP 131/62
[2018-01-29 15:55] VITALS: BP 111/54
[2018-01-29 20:00] VITALS: BP 111/61
[2018-01-30 04:00] VITALS: BP 100/60
[2018-01-30 08:05] VITALS: BP 128/69
[2018-01-30 11:21] VITALS: BP 120/46
[2018-01-30 16:50] VITALS: BP 112/51
[2018-01-30 21:02] VITALS: BP 156/52
[2018-01-31 01:14] VITALS: BP 148/64
[2018-01-31 05:54] VITALS: BP 151/64
[2018-01-31 08:44] VITALS: BP 165/64
[2018-01-31 13:07] VITALS: BP 113/78
[2018-01-31 20:00] VITALS: BP 143/58
[2018-02-01] VITALS: BP 154/63
[2018-02-01 08:46] VITALS: BP 144/67
[2018-02-01 12:43] VITALS: BP 126/57
[2018-02-01 16:48] VITALS: BP 100/43
[2018-02-01 20:37] VITALS: BP 119/53
[2018-02-02 00:07] VITALS: BP 150/55
[2018-02-02 04:50] VITALS: BP 118/67
[2018-02-02 09:03] VITALS: BP 148/58
[2018-02-02 12:12] VITALS: BP 129/52
[2018-02-02 16:23] VITALS: BP 127/44
[2018-02-02 21:08] VITALS: BP 147/60
[2018-02-03 05:49] VITALS: BP 146/52
[2018-02-03] MEDS ORDERED: BROVANA15 MCG/2 M INH (07:00)
[2018-02-03] MEDS ORDERED: XOPENEX 0.0.63 MG/3 UPD (07:01)
[2018-02-03] MEDS ORDERED: LISINOPRIL10 MG PO (07:02)
[2018-02-03] MEDS ORDERED: ZOLOFT50 MG PO (07:03)
[2018-02-03] MEDS ORDERED: PULMICORT0.25 MG/1 UPD (07:04)
[2018-02-03] MEDS ORDERED: GLUCOPHAGE500 MG PO (07:06)
[2018-02-03] MEDS ORDERED: MELATONIN 3 MG1 TAB PO (07:07)
[2018-02-03 08:01] VITALS: BP 169/70
[2018-02-03 11:17] VITALS: BP 129/87
[2018-02-03 15:23] VITALS: BP 111/46
== END 2018-02-03 15:47 | DRG 291 ==
LOC: D.ER 08:00 → D.M2 09:40 → D.EDHOLD 09:40 → D.M2 09:52
PROVIDERS: Family Medicine
DX: I11.0 Hypertensive heart disease with heart failure (principal); J18.9 Pneumonia, unspecified organism; N17.9 Acute kidney failure, unspecified; J44.0 Chronic obstructive pulmonary disease with (acute) lower respiratory infection; W19.XXXA Unspecified fall, initial encounter; S00.93XA Contusion of unspecified part of head, initial encounter; I50.9 Heart failure, unspecified; I27.20 Pulmonary hypertension, unspecified; E11.40 Type 2 diabetes mellitus with diabetic neuropathy, unspecified; K21.9 Gastro-esophageal reflux disease without esophagitis; M81.0 Age-related osteoporosis without current pathological fracture; M19.90 Unspecified osteoarthritis, unspecified site; K59.09 Other constipation; J30.9 Allergic rhinitis, unspecified; E78.5 Hyperlipidemia, unspecified; I25.10 Atherosclerotic heart disease of native coronary artery without angina pectoris; I65.29 Occlusion and stenosis of unspecified carotid artery

== ENCOUNTER 2018-03-17 20:16 | Inpatient (IN) | payer MEDICARE, OTHER ==
[~2018-03-17] VITALS: Ht 160 cm; Wt 67.3 kg
[~2018-03-17 20:16] MED LIST changes: +ALPHAGAN 0.2%5 ML EACH EYE; +BROVANA15 MCG/2 M INH; +BUMETANIDE0.5 MG PO; +GLUCOPHAGE500 MG PO; +KLONOPIN0.5 MG PO; +LEVEMIR IN100 UNITS/ SC; +LISINOPRIL5 MG PO; +LOPERAMIDE HCL2 MG PO; +LUBRICANT EYE D15 M2 EACH EYE; +OMEPRAZOLE20 M1 PO; +PULMICORT0.25 MG/1 UPD; +TOPROL XL50 MG PO; +XALATAN 0.0052.5 ML EACH EYE; +XOPENEX 0.0.63 MG/3 UPD; +ZOLOFT50 MG PO
[2018-03-17 20:30] VITALS: BP 144/60
[2018-03-17 20:39] LABS: BASOPHILS 1.9 % (0-2); EOSINOPHILS 6.5 % (0-7); HEMATOCRIT 34.1 % (36.0-48.0); HEMOGLOBIN 11.3 g/dL (12-16); IMMATURE GRANULOCYTES 0.5 % (0-5); LYMPHOCYTES 27.1 % (15-50); MCH 27.8 pg (26.0-34.0); MCHC 33.1 g/dL (31.0-37.0); MEAN PLATELET VOLUME 8.5 fL (7.4-10.4); MONOCYTES 16.4 % (2-11); NEUTROPHILS 47.6 % (40-80); RBC 4.06 10x6/uL (4.00-5.40); RDW 13.8 % (11.5-14.5); WBC 9.6 10x3/uL (4.8-10.8)
[2018-03-17 20:40] LABS: PLATELET COUNT 232 10x3/uL (130-400)
[2018-03-17 20:52] LABS: INR 1.03 (0.85-1.17)
[2018-03-17 20:56] LABS: ALBUMIN 3.2 g/dL (3.4-5.0); ALKALINE PHOSPHATASE 99 U/L (46-116); ALT (SGPT) 15 U/L (10-68); BILIRUBIN - TOTAL 0.15 mg/dL (0.2-1.3); CALC OSMOLALITY 278 mosm/kg (275-300); CALCIUM 9.8 mg/dL (8.5-10.1); CARBON DIOXIDE 22.2 mmol/L (21.0-32.0); CHLORIDE - SERUM 98 mmol/L (98-107); CREATININE - SERUM 1.7 mg/dL (0.6-1.3); GLUCOSE 211 mg/dL (74-106); POTASSIUM - SERUM 4.2 mmol/L (3.5-5.1); PROTEIN - SERUM 7.9 g/dL (6.4-8.2); SODIUM 132 mmol/L (136-145); UREA NITROGEN 35 mg/dL (7-18); eGFR NON AFRICAN AMERICAN 30 mL/min (90-120)
[2018-03-17 21:00] VITALS: BP 161/69
[2018-03-17 21:04] LABS: APTT 22.6 SECONDS (22.8-39.4)
[2018-03-17 21:07] LABS: CKMB 0.3 U/L (0.0-3.6); CREATINE KINASE 15 UL (21-215); MAGNESIUM - SERUM 2.3 mg/dL (1.8-2.4); TROPONIN-I < 0.017 ng/mL (0.000-0.060)
[2018-03-17 21:30] VITALS: BP 151/55
--- NOTE | 2018-03-17 22:15 | NUR ---
PT WAS ASSISTED TO RESTROOM BY NURSE. PT AMBULATED FROM WHEELCHAIR TO COMMODE WITHOUT ASSITANCE, WITHOUT DIFFICULTY. URINE SAMPLE OBATINED AND SENT TO LAB. UPON RETURN TO BED PT O2 SATURATION WAS 97% ON 4L. PT COLOR WNL. NO DISTRESS NOTED.
[2018-03-17 22:19] LABS: APPEARANCE CLEAR (CLEAR); BILIRUBIN NEGATIVE (NEGATIVE); COLOR YELLOW (YELLOW); GLUCOSE NEGATIVE (NEGATIVE); KETONE NEGATIVE (NEGATIVE); NITRITE NEGATIVE (NEGATIVE); PROTEIN 2+ mg/dL (NEGATIVE); UROBILINOGEN NORMAL (NORMAL)
[2018-03-17 22:23] LABS: EPITHELIAL CELLS OCC /hpf (0-5); RED CELLS - URINE OCC /hpf (0-5); WHITE CELLS - URINE OCC /hpf (0-5)
--- NOTE | 2018-03-17 23:16 | NUR ---
PT RETURNED FROM IR AT THIS TIME.
[2018-03-17 23:25] VITALS: BP 148/68
[2018-03-17 23:35] VITALS: BP 154/78
--- NOTE | 2018-03-17 23:49 | NUR ---
REPORT RECIEVED FROM ER.
[2018-03-18 00:25] VITALS: BMI 26.1
--- NOTE | 2018-03-18 02:08 | NUR ---
NOTED ER ORDER TO REPORT ABNORMAL VQ SCAN RESULTS TO DR KEENE IMMEDIATELY. NO REPORT PRESENT FOR THIS NURSE TO REVIEW AND REPORT. VQ SCAN DONE WHILE PATIENT IN ER.
--- NOTE | 2018-03-18 02:48 | NUR ---
ASSISTED TO BATHROOM TO VOID. WANTING HER NORMAL BEDTIME MEDS. EXPLAINED THAT ALL MEDS WERE TO BE EVALUATED BY MD IN AM. PT SAID SHE WOULD TAKE A CUP OF COFFEE TO HELP WITH HER NERVES. WILL MONITOR.
[2018-03-18 03:55] VITALS: BP 158/58
--- NOTE | 2018-03-18 06:00 | NUR ---
PT HAS BEEN UP AND DOWN TO BATHROOM WITH ASSISTANCE SEVERAL TIMES DURING THE NIGHT. NO C/O CHEST PAIN. WAS REQUESTING HER KLONOPIN AT 0300. INSTRUCTED ON MD NEEDING TO REVIEW HER MEDS IN AM AND THEN THEY WILL BE RESTARTED.
[2018-03-18 06:36] LABS: BASOPHILS 1.5 % (0-2); EOSINOPHILS 5.3 % (0-7); HEMATOCRIT 35.5 % (36.0-48.0); IMMATURE GRANULOCYTES 0.3 % (0-5); LYMPHOCYTES 21.3 % (15-50); MCH 27.7 pg (26.0-34.0); MCHC 33.8 g/dL (31.0-37.0); MEAN PLATELET VOLUME 8.8 fL (7.4-10.4); MONOCYTES 12.2 % (2-11); NEUTROPHILS 59.4 % (40-80); RBC 4.33 10x6/uL (4.00-5.40); RDW 13.7 % (11.5-14.5)
[2018-03-18 06:38] LABS: ANION GAP 16.1 mmol/L (8-16); CARBON DIOXIDE 23.1 mmol/L (21.0-32.0); CREATININE - SERUM 1.5 mg/dL (0.6-1.3); POTASSIUM - SERUM 4.2 mmol/L (3.5-5.1)
[2018-03-18 06:40] LABS: PLATELET COUNT 289 10x3/uL (130-400)
--- NOTE | 2018-03-18 07:31 | NUR ---
PT ASKING WHEN DR TRAN WILL BE IN TO SEE HER. NOTIFIED SHEETING PULLER THAT PATIENT STATES HER PCP IS DR TRAN IN [facility] AND EVERYTIME SHE COMES TO THE HOSPITAL. PT IS CURRENTLY LISTED UNDER DR KEENE.
[2018-03-18 09:27] VITALS: BP 150/55
--- NOTE | 2018-03-18 11:44 | NUR ---
UP AMBULATING ROOM. REFUSES SCDS.
[2018-03-18 12:05] VITALS: BP 140/88
--- NOTE | 2018-03-18 12:21 | NUR ---
UP ADLIB IN ROOM. SITTING UP IN CHAIR. REFUSES SCDS.
[2018-03-18 13:02] LABS: CKMB 0.4 U/L (0.0-3.6); CREATINE KINASE 13 UL (21-215); TROPONIN-I < 0.017 ng/mL (0.000-0.060)
[2018-03-18 16:20] VITALS: BP 111/47
[2018-03-18 18:00] LABS: CREATINE KINASE 12 UL (21-215); TROPONIN-I 0.021 ng/mL (0.000-0.060)
--- NOTE | 2018-03-18 19:52 | NUR ---
INITIAL ROUNDS AND ASSESSMENT. PT RESTING IN BED WTH NO DISTRESS. MONITOR AND CPOC.
[2018-03-18 20:24] VITALS: BP 140/48
[2018-03-18 23:48] LABS: CREATINE KINASE 15 UL (21-215); TROPONIN-I < 0.017 ng/mL (0.000-0.060)
[2018-03-18 23:55] VITALS: BP 139/51
[2018-03-19 03:50] VITALS: BP 151/64
[2018-03-19 05:44] LABS: BASOPHILS 2.4 % (0-2); EOSINOPHILS 8.5 % (0-7); HEMATOCRIT 34.4 % (36.0-48.0); HEMOGLOBIN 11.7 g/dL (12-16); IMMATURE GRANULOCYTES 0.1 % (0-5); LYMPHOCYTES 22.8 % (15-50); MCH 28.1 pg (26.0-34.0); MCV 82.5 fL (80.0-100.0); MEAN PLATELET VOLUME 8.5 fL (7.4-10.4); MONOCYTES 14.7 % (2-11); NEUTROPHILS 51.5 % (40-80); PLATELET COUNT 246 10x3/uL (130-400); RBC 4.17 10x6/uL (4.00-5.40); RDW 13.6 % (11.5-14.5); WBC 9.6 10x3/uL (4.8-10.8)
[2018-03-19 06:05] LABS: ANION GAP 13.6 mmol/L (8-16); CALCIUM 9.7 mg/dL (8.5-10.1); CARBON DIOXIDE 24.3 mmol/L (21.0-32.0); CREATININE - SERUM 1.5 mg/dL (0.6-1.3); POTASSIUM - SERUM 3.9 mmol/L (3.5-5.1)
--- NOTE | 2018-03-19 07:30 | NUR ---
ASSESSMENT DONE. DENIES NEEDS.
--- NOTE | 2018-03-19 07:56 | NUR ---
RESTING QUIETLY NAD NOTED MONITOR SHOWS SR RATE 64
[2018-03-19 13:22] VITALS: Ht 160 cm; Wt 67.3 kg
--- NOTE | 2018-03-19 16:58 | NUR ---
WITHOPUT CHANGES OR DISTRESS NOTED AT THIS TIME. DENIES NEEDS.
--- NOTE | 2018-03-19 19:49 | NUR ---
INITIAL ROUNDS AND ASSESSMENT COMPLETED. PT SITTING UP IN BEDSIDE CHAIR. ALERT/ORIENTED. C/O SORE THROAT. NO OTHER NEEDS VOICED. MONITOR AND CPOC.
[2018-03-19 20:00] VITALS: BP 167/59
--- NOTE | 2018-03-19 23:22 | NUR ---
BEDTIME MEDS GIVEN. PT C/O PAIN IN HER THROAT. ALREADY HAS AN ORDER FOR CHLORASEPTIC, ENCOURAGED PT TO USE IT SINCE SHE DESCRIBES IT "SCRATCHY PAIN".PT ALSO VOICING CONCERN OVER "NECK LUMP". ASSESSED NECK AND PT DOES HAVE A LARGE, FIRM NODULE ON THE RIGHT SIDE OF HER NECK. WILL HAVE MD FOLLOW UP ON ROUNDS. SITE SHOWS NO REDNESS OR INDICATIONS OF A BOIL, JUST FIRM TO TOUCH AND TENDER TO PALPATION. INSTRUCTED PT TO PLEASE NOT TOUCH IT ANYMORE THAN SHE HAS TOO AND MD WILL SEE IT IN THE AM. PT NOW HAS READIED FOR BED AND IS RESTING WITH CALL LIGHT IN REACH.
[2018-03-20] VITALS: BP 138/52
--- NOTE | 2018-03-20 01:44 | NUR ---
RESTING WITH EYES CLOSED. RESPS EVEN/NONLABORED. VSS. MONITOR AND CPOC.
[2018-03-20 04:00] VITALS: BP 134/61
[2018-03-20 06:44] LABS: BASOPHILS 2.9 % (0-2); EOSINOPHILS 9.4 % (0-7); HEMATOCRIT 35.4 % (36.0-48.0); HEMOGLOBIN 11.9 g/dL (12-16); IMMATURE GRANULOCYTES 0.1 % (0-5); LYMPHOCYTES 24.4 % (15-50); MCH 27.5 pg (26.0-34.0); MCHC 33.6 g/dL (31.0-37.0); MCV 81.9 fL (80.0-100.0); MEAN PLATELET VOLUME 8.7 fL (7.4-10.4); MONOCYTES 12.9 % (2-11); NEUTROPHILS 50.3 % (40-80); PLATELET COUNT 292 10x3/uL (130-400); RBC 4.32 10x6/uL (4.00-5.40); RDW 13.4 % (11.5-14.5); WBC 9.3 10x3/uL (4.8-10.8)
[2018-03-20 06:58] LABS: ANION GAP 14.5 mmol/L (8-16); CALCIUM 9.6 mg/dL (8.5-10.1); CARBON DIOXIDE 22.7 mmol/L (21.0-32.0); CREATININE - SERUM 1.4 mg/dL (0.6-1.3); POTASSIUM - SERUM 4.2 mmol/L (3.5-5.1)
--- NOTE | 2018-03-20 08:15 | NUR ---
ASSESSMENT DONE. DENIES NEEDS.
[2018-03-20 08:52] VITALS: BP 99/48
[2018-03-20 11:43] VITALS: BP 130/55
[2018-03-20 16:08] VITALS: BP 123/53
--- NOTE | 2018-03-20 19:27 | NUR ---
PT LAYING IN BED COMPLAINING OF HEADACHE. STATES YESTURDAY THEY GAVE HER THE NIGHT MEDS AND IT HELPED. PT HAS NO S/S OF DISTRESS. PT UP AD DEB. FIXED TELEMETRY, NAME AND DATE PLACED ON BOARD. BEDLOW AND CALL LIGHT IN REACH. WILL CPOC
[2018-03-20 20:00] VITALS: BP 138/56
--- NOTE | 2018-03-20 20:59 | NUR ---
FSBS IS 96, NO INSULIN NEEDED. NORCO GIVEN FOR PAIN. PT DENIES ANY OTHER NEEDS. WILL CPCO
--- NOTE | 2018-03-20 23:48 | NUR ---
PT ASLEEP AROUSES TO VERBAL STIMULI. PT DENIES ANY NEEDS. NO S/S OF DISTRESS. WILL CPOC
[2018-03-21 00:06] VITALS: BP 136/89
--- NOTE | 2018-03-21 02:30 | NUR ---
PT IS RUNNING 80 NORMAL SINUS ON THE MONITOR
[2018-03-21 04:00] VITALS: BP 147/54
[2018-03-21 05:30] LABS: BASOPHILS 3.1 % (0-2); EOSINOPHILS 9.5 % (0-7); HEMOGLOBIN 11.1 g/dL (12-16); IMMATURE GRANULOCYTES 0.3 % (0-5); LYMPHOCYTES 25.6 % (15-50); MCH 27.8 pg (26.0-34.0); MCHC 33.6 g/dL (31.0-37.0); MCV 82.5 fL (80.0-100.0); MEAN PLATELET VOLUME 8.7 fL (7.4-10.4); MONOCYTES 16.5 % (2-11); PLATELET COUNT 270 10x3/uL (130-400); RDW 13.5 % (11.5-14.5)
[2018-03-21 05:46] LABS: ANION GAP 15.6 mmol/L (8-16); CALCIUM 9.9 mg/dL (8.5-10.1); CARBON DIOXIDE 22.2 mmol/L (21.0-32.0); CREATININE - SERUM 1.6 mg/dL (0.6-1.3); POTASSIUM - SERUM 3.8 mmol/L (3.5-5.1)
--- NOTE | 2018-03-21 06:41 | NUR ---
PT FSBS IS 70, NO INSULIN NEEDED, PT DENIES ANY NEEDS. NO S/S OF DISTRESS. PT HAS GLIPIZIDE SCHEDULED. WILL HOLD THIS AM DUE TO FSBS IS 70, PT VERBALIZED AGREEMENT. PT HAS NO S/S OF DISTRESS. BEDLOW AND CALL LIGHT IN REACH. WILL CPOC
[2018-03-21 07:47] VITALS: BP 119/57
--- NOTE | 2018-03-21 09:42 | NUR ---
TELEMETRY SR. UP TO CHAIR WITH CALL LIGHT IN REACH. WILL CONT. PLAN OF CARE.
[2018-03-21 11:10] VITALS: BP 99/39
[2018-03-21] MEDS ORDERED: VIBRAMYCIN 100100 MG PO (11:28)
[2018-03-21] MEDS ORDERED: HUMULIN REG INJ [BKC SC (11:51)
--- NOTE | 2018-03-21 13:42 | NUR ---
WALK TEST BY RT. DOES NOT QUALIFY FOR HOME 02. STATES SOME DIZZINESS WHILE AMBULATING. ALVAREZ SOMMER NOTIFIED. NO NEW ORDERS GIVEN. WILL MONITOR.
--- NOTE | 2018-03-21 14:47 | MORECARE ---
CASE MANAGEMENT DISCHARGE SUMMARY PATIENT: ROSY BANERJEE UNIT: [id number] ADM DATE: 03/17/18 AGE: 87 : [birth year] SEX: F ROOM/BED: D.[facility]6 AUTHOR: TITO,DOC PHYSICIAN: REFERRING PHYSICIAN: MARIN KEENE MD DATE OF SERVICE: 03/21/18 Discharge Plan Patient Name: ROSY BANERJEE Facility: [facility]:[place] : 1930 Planned Disposition: Long-Term Facility Anticipated Discharge Date: 03/21/18 Discharge Date: Expected LOS: 4 Initial Reviewer: [email or web address] Initial Review Date: 03/21/2018 Generated: 03/21/18 3:47 pm DCPIA - Discharge Planning Initial Assessment Updated by [email or web address]: Morales Boogie on 03/21/18 2:44 pm * Is the patient Alert and Oriented? Yes * How many steps to enter\exit or inside your home? NONE * PCP DR. TRAN * Pharmacy [facility] * Preadmission Environment Long-Term Facility * [facility] * ADLs Partial Dependent * Partial ADLs (Assistance needed) Bathing Medication Management Transfers * Equipment Cane Nebulizer Oxygen Wheelchair * Other Equipment ALL MEDICAL EQUIPMENT PROVIDED BY FACILITY * List name and contact numbers for known caregivers / representatives who currently or will assist patient after discharge: FEI CARLISLE, DAUGHTER, * Verbal permission to speak to the caregivers and representatives has been obtained from the patient. Yes * Community resources currently utilized None * Please name any agencies selected above. NONE * Additional services required to return to the preadmission environment? No * Can the patient safely return to the preadmission environment? Yes * Has this patient been hospitalized within the prior 30 days at any hospital? No External Providers External Provider: [facility] Next Contact Date: 03/21/2018 Service Request Date: Service Type: Resolution: Reviewer: Comments: Coverage Notice Reviewer: [id number] - Morales Boogie Notice Issued Date-Time: 03/21/2018 13:50 Notice Type: IM Discharge Notice Notice Delivered To: Patient Relationship to Patient: Parachute Taper Name: Delivery Method: HAND - Hand Delivered Zaynab Days: Prior Verbal Notification: Recipient Understood Notice: Yes Recipient Signature: Yes Med Rec Note Co-signed by Attending: Coverage Notice Comment: Patient Name: ROSY BANERJEE Page 71582 at 1447 All edits/amendments must be made on the electronic document DICTATION DATE: 03/21/181446 RAILROAD CAR CLEANER: VIOLET 03/21/181446 RPT#: [id number] DC DATE: STATUS: ADM IN [facility] [address] [place] [address] END OF REPORT
--- NOTE | 2018-03-21 14:58 | MORECARE ---
CASE MANAGEMENT DISCHARGE SUMMARY PATIENT: ROSY BANERJEE UNIT: [id number] ADM DATE: 03/17/18 AGE: 87 : [birth year] SEX: F ROOM/BED: D.2116 AUTHOR: TITO,DOC PHYSICIAN: REFERRING PHYSICIAN: MARIN KEENE MD DATE OF SERVICE: 03/21/18 Discharge Plan Patient Name: ROSY BANERJEE Facility: [facility]:[place] : 1930 Planned Disposition: Custodial Facility Anticipated Discharge Date: 03/21/18 Discharge Date: Expected LOS: 4 Initial Reviewer: [email or web address] Initial Review Date: 03/21/2018 Generated: 03/21/18 3:58 pm Comments DCP- Discharge Planning Updated by [email or web address]: Morales Boogie on 03/21/18 1:[address] Patient Name: ROSY BANERJEE Admission Status: ER Accout number: [id number] Admission Date: 03-17-2018 : 1930 Admission Diagnosis:SHORTNESS OF BREATH Attending: MARIN KEENE Current LOS: 4 Anticipated DC Date: 03-21-2018 Planned Disposition: Custodial Facility Primary Insurance: MEDICARE A & B PLANNED EXTERNAL PROVIDER: [facility], MEDICARE REHAB BED. Discharge Planning Comments: CM RECEIVED DISCHARGE ORDER, MET WITH PT IN ROOM WHO REPORTS SHE LIVES AT [facility], AND WILL RETURN THERE TODAY. PT REPORTS HER SON JAYDEN IS DRIVING HER THERE AND IS HERE AT THE HOSPITAL WAITING TO TAKE HER NOW. CM CALLED [facility], , SPOKE TO JUA NM AND NOTIFIED OF PT'S RETURN TODAY. CM SPOKE TO DAKOTAH GALVEZ WHO ADVISED PT WAS IN SKILLED BED PRIOR TO HOSPITAL STAY AND WILL RETURN TO SKILLED BED. CM FAXED DISCHARGE INFORMATION TO [facility] AT [phone]. NURSE REPORT TO BE CALLED TO TAMANNA AT [facility] AT [phone]. PT REPORTS HER SON IS HERE TO TRANSPORT PT BACK TO HOSPITAL Engineering Group Leader: Morales Boogie DCPIA - Discharge Planning Initial Assessment Updated by [id number]: Morales Boogie on 03/21/18 2:44 pm * Is the patient Alert and Oriented? Yes * How many steps to enter\exit or inside your home? NONE * PCP DR. TRAN * Pharmacy [facility] * Preadmission Environment Custodial Facility * [facility] * ADLs Partial Dependent * Partial ADLs (Assistance needed) Bathing Medication Management Transfers * Equipment Cane Nebulizer Oxygen Wheelchair * Other Equipment ALL MEDICAL EQUIPMENT PROVIDED BY FACILITY * List name and contact numbers for known caregivers / representatives who currently or will assist patient after discharge: FEI CARLISLE, DAUGHTER, * Verbal permission to speak to the caregivers and representatives has been obtained from the patient. Yes * Community resources currently utilized None * Please name any agencies selected above. NONE * Additional services required to return to the preadmission environment? No * Can the patient safely return to the preadmission environment? Yes * Has this patient been hospitalized within the prior 30 days at any hospital? No Coverage Notice Reviewer: [email or web address] Noah Boogie Notice Issued Date-Time: 03/21/2018 13:50 Notice Type: IM Discharge Notice Notice Delivered To: Patient Relationship to Patient: Home Health Scheduler Name: Delivery Method: HAND - Hand Delivered Zaynab Days: Prior Verbal Notification: Recipient Understood Notice: Yes Recipient Signature: Yes Med Rec Note Co-signed by Attending: Coverage Notice Comment: Last DP export: 03/21/18 1:47 pm Patient Name: ROSY BANERJEE Page [id number] at 1458 All edits/amendments must be made on the electronic document DICTATION DATE: 03/21/181457 SMALL BUSINESS DIRECTOR: VIOLET 03/21/188 RPT#: [id number] DC DATE: STATUS: ADM IN [facility] [address] [place] [address] END OF REPORT
--- NOTE | 2018-03-21 15:19 | NUR ---
UP AMBULATING WITH PT ASSIST.
[2018-03-21 15:28] VITALS: BP 97/41
--- NOTE | 2018-03-21 15:44 | NUR ---
IV AND TELEMETRY DCD. DC PLANS GIVEN TO DARSHAN ALEGRIA. ESCORTED TO CAR BY W/C.
--- NOTE | 2018-03-23 12:22 | CN ---
PATIENT NAME:ROSY BANERJEE MEDICAL RECORD: [id number] : [birth year] LOCATION:[facility] D.2116 ADMIT DATE: 03/17/18 ACCOUNT: [id number] CONSULTING PHYSICIAN: ESTEBAN RAHMAN MD REFERRING PHYSICIAN: MARIN KEENE MD DATE OF CONSULTATION: 03/18/2018 HISTORY: An 87-year-old female with history of coronary artery disease, status post coronary bypass grafting. She has history of cerebrovascular disease, obstructive pulmonary disease, and pulmonary hypertension. She presented to the ER with chest tightness and marked wheezing. She had fairly rapid onset of symptoms. She received nitroglycerin as well as updrafts. She had marked improvement in her symptomatology with updrafts. She felt wheezing has improved. She felt tightness as well as dyspnea improved. We are asked to see her concerning cardiovascular status. PAST MEDICAL HISTORY: Includes; 1. History of coronary artery disease. 2. Cerebrovascular disease. 3. Pulmonary hypertension, not a candidate for surgery. 4. Obstructive pulmonary disease and pulmonary hypertension. 5. Hypertension. 6. Diabetes mellitus. ALLERGIES: INCLUDE POTASSIUM, CONTRAST IV, AND ORAL PENICILLIN. MEDICATIONS: Include Glucophage 500 b.i.d., Lotrel 10 b.i.d., Pulmicort updraft 0.25 b.i.d., Bumex 0.5 daily, Zoloft 25 daily, Senath 5/325 one q. 4 p.r.n., Neurontin 200 b.i.d., aspirin 81 daily, metoprolol 50 daily, lisinopril 10 b.i.d., and amlodipine 10 daily. SOCIAL HISTORY: Currently resides at [facility]. REVIEW OF SYSTEMS: The patient reports easy bruising but reports no swollen glands. The patient reports no fever, no night sweats, no significant weight gain, no significant weight loss. No significant exercise tolerance. The patient reports no dry eyes, no irritation, no vision change. Patient reports no difficulty hearing and no ear pain. Patient reports no frequent nose bleeds or nose and sinus problems. Patient reports on arm pain on exertion. No shortness of breath while lying down. No history of heart murmur. Patient reports no cough, no wheezing or coughing up blood. Patient reports no abdominal pain, no vomiting. Normal appetite. No diarrhea and not vomiting blood. No nausea and no constipation. Patient reports no incontinence. No difficulty urinating. No hematuria. No increased frequency. Patient reports no muscle aches. No weakness, no arthralgias, no back pain. No swelling of the extremities. Patient reports no abnormal mole, no jaundice, no rashes. Reports no loss of consciousness. No weakness and no numbness. No seizures, dizziness, or headaches. The patient reports no depression, no sleep disturbance, feeling safe in a relationship and no alcohol abuse. Patient reports on fatigue. Reports no runny nose or sinus pressure. No itching, no hives, and no frequent sneezing. PHYSICAL EXAMINATION: GENERAL: Pleasant female, in no acute distress, reports dyspnea is much improved. CONSULT REPORT [id number] ROSY BANERJEE VITAL SIGNS: Blood pressure 150/55. Pulse 90 and regular. HEENT: Normocephalic and atraumatic. NECK: No JVD or bruit. HEART: Regular. LUNGS: Donovan are clear. ABDOMEN: Soft and nontender. EXTREMITIES: Pulses 2+ with no edema. DIAGNOSTIC DATA: ECG shows nonspecific ST-T changes. IMPRESSION: Suspect this is exacerbation of obstructive pulmonary disease, pulmonary hypertension, etc. Breathing has markedly improved with updraft therapy. Agree with current management. TRANSINT:[id number] Voice Confirmation ID: [id number] DOCUMENT ID: [id number] ESTEBAN RAHMAN MD at 1222 CC: [id number] DICTATION DATE: 03/18/18 1013 WET END HELPER: 03/18/18 1446 DIS IN 03/21/18 [id number] [place] [address]
== END 2018-03-21 15:45 | DRG 291 ==
LOC: D.ER 20:16 → D.M2 23:38
PROVIDERS: Emergency Medicine; ADMIT Internal Medicine Nephrology
DX: I11.0 Hypertensive heart disease with heart failure (principal); J96.01 Acute respiratory failure with hypoxia; I24.8 Other forms of acute ischemic heart disease; N17.9 Acute kidney failure, unspecified; J44.1 Chronic obstructive pulmonary disease with (acute) exacerbation; I50.33 Acute on chronic diastolic (congestive) heart failure; E78.5 Hyperlipidemia, unspecified; I25.119 Atherosclerotic heart disease of native coronary artery with unspecified angina pectoris; E11.9 Type 2 diabetes mellitus without complications; I27.20 Pulmonary hypertension, unspecified; I08.3 Combined rheumatic disorders of mitral, aortic and tricuspid valves

== ENCOUNTER 2018-03-28 15:22 | Inpatient (IN) | payer MEDICARE, OTHER ==
[~2018-03-28] VITALS: Ht 160 cm; Wt 68.0 kg
[~2018-03-28 15:22] MED LIST changes: +HUMULIN REG INJ [BKC SC; +VIBRAMYCIN 100100 MG PO
[2018-03-28] MEDS ORDERED: FUROSEMIDE20 MG PO (16:11)
[2018-03-28 16:36] LABS: BASOPHILS 1.4 % (0-2); EOSINOPHILS 3.1 % (0-7); HEMATOCRIT 31.1 % (36.0-48.0); HEMOGLOBIN 10.3 g/dL (12-16); IMMATURE GRANULOCYTES 0.4 % (0-5); LYMPHOCYTES 21.2 % (15-50); MCH 27.5 pg (26.0-34.0); MCHC 33.1 g/dL (31.0-37.0); MCV 83.2 fL (80.0-100.0); MEAN PLATELET VOLUME 8.8 fL (7.4-10.4); MONOCYTES 17.7 % (2-11); NEUTROPHILS 56.2 % (40-80); PLATELET COUNT 310 10x3/uL (130-400); RBC 3.74 10x6/uL (4.00-5.40); RDW 13.9 % (11.5-14.5); WBC 11.7 10x3/uL (4.8-10.8)
[2018-03-28 16:45] LABS: APTT 29.3 SECONDS (22.8-39.4); INR 1.08 (0.85-1.17); PROTIME 13.5 SECONDS (11.6-15.0)
[2018-03-28 17:06] LABS: ALBUMIN 2.8 g/dL (3.4-5.0); ALKALINE PHOSPHATASE 148 U/L (46-116); ALT (SGPT) 19 U/L (10-68); BILIRUBIN - TOTAL 0.41 mg/dL (0.2-1.3); CALC OSMOLALITY 273 mosm/kg (275-300); CALCIUM 10.3 mg/dL (8.5-10.1); CARBON DIOXIDE 22.5 mmol/L (21.0-32.0); CHLORIDE - SERUM 99 mmol/L (98-107); CREATININE - SERUM 1.4 mg/dL (0.6-1.3); POTASSIUM - SERUM 4.2 mmol/L (3.5-5.1); PROTEIN - SERUM 8.5 g/dL (6.4-8.2); SODIUM 131 mmol/L (136-145); UREA NITROGEN 31 mg/dL (7-18); eGFR NON AFRICAN AMERICAN 38 mL/min (90-120)
[2018-03-28 17:09] LABS: GLUCOSE 169 mg/dL (74-106)
--- NOTE | 2018-03-28 17:10 | NUR ---
URINE SENT TO THE LAB AT THIS TIME.
[2018-03-28 17:15] LABS: CKMB 0.3 U/L (0.0-3.6); CREATINE KINASE 11 UL (21-215); PRO BNP 8860 pg/mL (0-450); TROPONIN-I < 0.017 ng/mL (0.000-0.060)
[2018-03-28 17:28] VITALS: BP 159/84
--- NOTE | 2018-03-28 17:40 | NUR ---
PT ASSISTED ONTO BEDSIDE TOILET AND THEN BACK INTO BED. DENIES ANY NEEDS AT THIS TIME.
[2018-03-28 17:53] LABS: APPEARANCE CLEAR (CLEAR); BILIRUBIN NEGATIVE (NEGATIVE); COLOR YELLOW (YELLOW); GLUCOSE NEGATIVE (NEGATIVE); KETONE NEGATIVE (NEGATIVE); NITRITE NEGATIVE (NEGATIVE); PROTEIN 1+ mg/dL (NEGATIVE); SPECIFIC GRAVITY 1.015 (1.005-1.020); UROBILINOGEN NORMAL (NORMAL)
[2018-03-28 18:00] VITALS: BP 165/65
--- NOTE | 2018-03-28 18:24 | NUR ---
PT ASSISTED WITH REPOSITIONING FOR COMFORT. PT DENIES ANY NEEDS AT THIS TIME. CALL LIGHT IN REACH, NC AND AMOR CATH IN PLACE. PT REQUESTING TO SPEAK WITH TREATING PROVIDER, PROVIDER NOTIFIED.
--- NOTE | 2018-03-28 21:16 | NUR ---
REPORT RECEIVED FROM GIRMA SHARP
[2018-03-29 00:43] VITALS: BP 176/75
[2018-03-29 04:00] VITALS: BP 145/70
--- NOTE | 2018-03-29 07:10 | NUR ---
PATIENT SITTING UP IN BEDSIDE CHAIR AWAKE, ALERT AND ORIENTED X 4. PATIENT DENIES ANY NEEDS OR PAIN. CALL LIGHT IN PATIENTS LAP. INSTRUCTED PATIENT NOT TO ATTEMPT TO GET UP ALONE AND TO USE CALL LIGHT. PATIENT VERBALIZED UNDERSTANDING. WILL CONTINUE WITH PLAN OF CARE.
[2018-03-29 07:58] VITALS: BP 169/69
--- NOTE | 2018-03-29 10:52 | NUR ---
DAKOTAH SOMMER IN ROOM. NEW ORDERS RECIEVED.
[2018-03-29 11:33] VITALS: BP 166/69
[2018-03-29 13:00] VITALS: BMI 26.5
[2018-03-29 13:51] VITALS: Ht 160 cm; Wt 68.0 kg
[2018-03-29 15:14] VITALS: BP 173/74
[2018-03-29 15:52] LABS: % SATURATION 12 % (15-55); IRON 26 ug/dl (35-150); TOTAL IRON BIND CAPACITY 215 ug/dl (260-445); UNSAT IRON BIND CAPACITY 189 ug/dl (150-375)
[2018-03-29 20:00] VITALS: BP 163/88
--- NOTE | 2018-03-29 23:15 | NUR ---
Received patient in lounge chair sleeping, eyes closed, respirations easy and regular, oxygen off at this time. No signs of respiratory distress. PIV in left lower arm is SL, no signs of infection. Brown catheter in place draining clear yellow urine. risk tech on, rhythm SR.
[2018-03-30] VITALS: BP 158/66
[2018-03-30 04:00] VITALS: BP 150/60
[2018-03-30 07:18] LABS: BASOPHILS 0.9 % (0-2); EOSINOPHILS 0.1 % (0-7); HEMATOCRIT 28.7 % (36.0-48.0); HEMOGLOBIN 9.6 g/dL (12-16); IMMATURE GRANULOCYTES 0.3 % (0-5); LYMPHOCYTES 22.2 % (15-50); MCH 27.3 pg (26.0-34.0); MCHC 33.4 g/dL (31.0-37.0); MCV 81.5 fL (80.0-100.0); MEAN PLATELET VOLUME 9.2 fL (7.4-10.4); MONOCYTES 13.9 % (2-11); NEUTROPHILS 62.6 % (40-80); PLATELET COUNT 330 10x3/uL (130-400); RBC 3.52 10x6/uL (4.00-5.40); RDW 13.9 % (11.5-14.5); WBC 10.3 10x3/uL (4.8-10.8)
[2018-03-30 07:27] LABS: ANION GAP 16.3 mmol/L (8-16); CALCIUM 10.1 mg/dL (8.5-10.1); CARBON DIOXIDE 22.6 mmol/L (21.0-32.0); CREATININE - SERUM 1.6 mg/dL (0.6-1.3); POTASSIUM - SERUM 3.9 mmol/L (3.5-5.1)
--- NOTE | 2018-03-30 07:40 | NUR ---
ALERT AND ORIENTED. DENIES ANY NEEDS, O2 AT 2 PER NC. TELEMERTY SHOWS SR. AMOR CATH PATENT TO GRAVITY BAG. UP AB DEB. WILL MONITOR
[2018-03-30 09:13] VITALS: BP 128/53
--- NOTE | 2018-03-30 11:00 | NUR ---
RESTING QUIETLY NAD NOTED
[2018-03-30 12:30] VITALS: BP 114/49
[2018-03-30 17:39] VITALS: BP 148/58
--- NOTE | 2018-03-30 17:52 | MORECARE ---
CASE MANAGEMENT DISCHARGE SUMMARY PATIENT: ROSY BANERJEE UNIT: [id number] ADM DATE: 03/28/18 AGE: 87 : [birth year] SEX: F ROOM/BED: D.6 AUTHOR: GENESIS FRANCIS PHYSICIAN: REFERRING PHYSICIAN: MARIN KEENE MD DATE OF SERVICE: 03/30/18 Discharge Plan Patient Name: ROSY BANERJEE Facility: [facility]:[place] : 1930 Planned Disposition: Prison Facility Anticipated Discharge Date: Discharge Date: Expected LOS: Initial Reviewer: [email or web address] Initial Review Date: 03/30/2018 Generated: 03/30/18 6:51 pm Patient Name: ROSY BANERJEE Page [phone] at 1752 All edits/amendments must be made on the electronic document DICTATION DATE: 03/30/181750 TECHNICAL AID: VIOLET 03/30/181750 RPT#: [id number] DC DATE: STATUS: ADM IN [facility] [address] [place] [address] END OF REPORT
--- NOTE | 2018-03-30 17:58 | MORECARE ---
CASE MANAGEMENT DISCHARGE SUMMARY PATIENT: ROSY BANERJEE UNIT: [id number] ADM DATE: 03/28/18 AGE: 87 : [birth year] SEX: F ROOM/BED: D.0066 AUTHOR: TITO,DOC PHYSICIAN: REFERRING PHYSICIAN: MARIN KEENE MD DATE OF SERVICE: 03/30/18 Discharge Plan Patient Name: ROSY BANERJEE Facility: [facility]:[place] : 1930 Planned Disposition: Longterm Facility Anticipated Discharge Date: Discharge Date: Expected LOS: Initial Reviewer: [email or web address] Initial Review Date: 03/30/2018 Generated: 03/30/18 6:58 pm Comments DCP- Discharge Planning Updated by [email or web address]: Morales Boogie on 03/30/18 4:[address] Patient Name: ROSY BANERJEE Admission Status: ER Accout number: [id number] Admission Date: 03-28-2018 : 1930 Admission Diagnosis: Attending: MARIN KEENE Current LOS: 2 Anticipated DC Date: Planned Disposition: Longterm Facility Primary Insurance: MEDICARE A & B PLANNED EXTERNAL PROVIDER: [facility], MEDICARE REHAB BED Discharge Planning Comments: CM SPOKE TO COTY GALVEZ OF [facility], SHE HAS VISITED WITH PT AND THEY WILL BE ACCEPTING PT BACK TO SKILLED BED AT DISCHARGE. PT LIVES AT FACILITY. CM SPOKE TO PT IN ROOM TO DISCUSS DISCHARGE PLANS AND NEEDS. PT REPORTS PLAN TO RETURN TO [place] AT DISCHARGE SHE LIVES AT THE "INTERMEDIATE". PT REPORTS THEY SHOULD BRING HER WHEELCHAIR WHEN THEY PICK HER UP. CM FAXED UPDATE TO [facility]. FOR DISCHARGE, FAX DISCHARGE INFORMATION TO [place] AT [phone]; NURSE REPORT TO BE CALLED TO [facility] AT [phone]. [place] TO ARRANGE VAN TRANSPORTATION. Pilot Plant Technician: Morales Boogie DCPIA - Discharge Planning Initial Assessment Updated by [email or web address]: Morales Boogie on 03/30/18 5:52 pm * Is the patient Alert and Oriented? Yes * How many steps to enter\\exit or inside your home? NONE * PCP DR. TRAN * Pharmacy [facility] * Preadmission Environment Longterm Facility * Facility Name [facility] * ADLs Partial Dependent * Partial ADLs (Assistance needed) Ambulation Bathing Medication Management Toileting Transfers * Equipment Cane Nebulizer Oxygen Wheelchair * Other Equipment ALL MEDICAL EQUIPMENT PROVIDED BY FACILITY * List name and contact numbers for known caregivers / representatives who currently or will assist patient after discharge: FEI CARLISLE, DAUGHTER, * Verbal permission to speak to the caregivers and representatives has been obtained from the patient. Yes * Community resources currently utilized None * Please name any agencies selected above. NONE * Additional services required to return to the preadmission environment? No * Can the patient safely return to the preadmission environment? Yes * Has this patient been hospitalized within the prior 30 days at any hospital? Yes External Providers [facility] Next Contact Date: 03/30/2018 Service Request Date: Service Type: Resolution: Reviewer: Comments: Last DP export: 03/30/18 4:51 p Patient Name: ROSY BANERJEE Page [phone] at 1758 All edits/amendments must be made on the electronic document DICTATION DATE: 03/30/181757 ASSISTANT BOOKKEEPER: VIOLET 03/30/181757 RPT#: [id number] DC DATE: STATUS: ADM IN [facility] [address] [place] [address] END OF REPORT
[2018-03-30 20:00] VITALS: BP 143/49
--- NOTE | 2018-03-30 22:02 | NUR ---
PT SITTING UP IN BED ALERT AND ORIENTED. PT DENIES ANY PAIN OR NEEDS AT THIS TIME. NO S/S OF DISTRESS. BED LOW CALL LIGHT WITHIN REACH. WILL CONTINUE TO MONITOR.
[2018-03-31] VITALS (7 sets, daily range): BP systolic 132–155; BP diastolic 46–60
--- NOTE | 2018-03-31 03:35 | NUR ---
PT COMPLAINS OF SOB AND VOICE GETTING HORSE. CALLED RESPRITORY FOR PRN TREATMENT. BED LOW CALL LIGHT WITHIN REACH. WILL CONTINUE TO MONITOR.
--- NOTE | 2018-03-31 03:59 | NUR ---
PT RESTING IN BED COMFORTABLY. RR-EVEN AND UNLABORED. FAMILY AT BEDSIDE. WILL CONTINUE TO MONITOR.
--- NOTE | 2018-03-31 04:18 | NUR ---
RESTING IN BED WITH EYES CKLOSED. NO S/S OF DISTRESSO BSERVED. WILL CONT. POC.
[2018-03-31 05:39] LABS: BASOPHILS 1.2 % (0-2); EOSINOPHILS 2.6 % (0-7); HEMOGLOBIN 9.6 g/dL (12-16); IMMATURE GRANULOCYTES 0.3 % (0-5); MCH 27.7 pg (26.0-34.0); MCHC 33.1 g/dL (31.0-37.0); MEAN PLATELET VOLUME 8.9 fL (7.4-10.4); MONOCYTES 15.6 % (2-11); NEUTROPHILS 40.3 % (40-80); PLATELET COUNT 354 10x3/uL (130-400); RBC 3.47 10x6/uL (4.00-5.40); RDW 14.1 % (11.5-14.5); WBC 9.8 10x3/uL (4.8-10.8)
[2018-03-31 05:43] LABS: MCV 83.6 fL (80.0-100.0)
[2018-03-31 06:03] LABS: ANION GAP 14.3 mmol/L (8-16); CARBON DIOXIDE 24.3 mmol/L (21.0-32.0); CREATININE - SERUM 1.5 mg/dL (0.6-1.3); POTASSIUM - SERUM 3.6 mmol/L (3.5-5.1)
[2018-03-31 08:16] LABS: FOLATE (FOLIC ACID) - SERUM 13.4 ng/mL (>3.0)
--- NOTE | 2018-03-31 09:34 | NUR ---
AM MEDS GIVEN AT THIS TIME. ALSO GAVE NORCO FOR PAIN LEVEL OF 8/10. PT UP TO CHAIR, DENIES ANY OTHER NEEDS AT THIS TIME. CALL LIGHT IN REACH,NAD NOTED,W ILL CONTINUE TO MONITOR.
[2018-03-31] MEDS ORDERED: ZYLOPRIM300 MG PO (14:38)
--- NOTE | 2018-03-31 17:41 | NUR ---
PT UP TO CHAIR, RESTING COMFORTABLY, EASILY AROUSES TO VOICE. PT DENIES ANY NEEDS AT THIS TIME. CALL LIGHT IN REACH, NAD NOTED, WILL CONTINUE TO MONITOR.
--- NOTE | 2018-03-31 20:45 | NUR ---
SITTING UP IN BEDSIDE CHAIR. ALERT/ORIENTED. O2 @ 2L/NC WITH NONLABORED RESPIRATIONS. SALINE LOCK TO LFA. AMOR TO BEDSIDE DRAIN BAG WITH YELLOW URINE. SR PER TELEMETRY. MONITOR AND CPOC. CALL LIGHT IN REACH.
--- NOTE | 2018-04-01 01:01 | NUR ---
RESTING IN BED WITH NO DISTRESS. MONITOR AND CPOC.
--- NOTE | 2018-04-01 01:30 | NUR ---
RESTING IN BED WITH NO DISTRESS. EYES CLOSED. RESPS EVEN/NONLABORED. MONITOR AND CPOC.
[2018-04-01 03:56] VITALS: BP 149/55
[2018-04-01 05:33] LABS: BASOPHILS 1.3 % (0-2); EOSINOPHILS 5.7 % (0-7); HEMATOCRIT 31.8 % (36.0-48.0); HEMOGLOBIN 10.5 g/dL (12-16); IMMATURE GRANULOCYTES 0.5 % (0-5); LYMPHOCYTES 35.4 % (15-50); MCH 27.7 pg (26.0-34.0); MCV 83.9 fL (80.0-100.0); MONOCYTES 13.9 % (2-11); NEUTROPHILS 43.2 % (40-80); PLATELET COUNT 380 10x3/uL (130-400); RBC 3.79 10x6/uL (4.00-5.40); WBC 8.3 10x3/uL (4.8-10.8)
--- NOTE | 2018-04-01 05:45 | NUR ---
PT HAS RESTED THROUGH THE NIGHT WITH NO FURTHER NEED FOR PAIN OR ANXIETY MED VOICED. CALL LIGHT IN REACH. MONITOR AND CPOC.
[2018-04-01 05:49] LABS: ANION GAP 13.4 mmol/L (8-16); CALCIUM 9.7 mg/dL (8.5-10.1); CREATININE - SERUM 1.4 mg/dL (0.6-1.3); POTASSIUM - SERUM 3.4 mmol/L (3.5-5.1)
--- NOTE | 2018-04-01 07:20 | NUR ---
ASSESSMENT DONE. DENIES NEEDS.
[2018-04-01 08:28] VITALS: BP 153/64
--- NOTE | 2018-04-01 09:43 | NUR ---
UP TO CHAIR WITH PT ASSIST. WILL CONT. PLAN OF CARE.
[2018-04-01 12:10] VITALS: BP 143/52
[2018-04-01 16:55] VITALS: BP 150/60
--- NOTE | 2018-04-01 17:36 | NUR ---
WITHOUT CHANGES OR DISTRESS NOTED AT THIS TIME
[2018-04-01 19:50] VITALS: BP 159/64
[2018-04-01 23:52] VITALS: BP 140/56
[2018-04-02 03:45] VITALS: BP 157/51
[2018-04-02 06:29] LABS: ANION GAP 10.9 mmol/L (8-16); CALCIUM 9.7 mg/dL (8.5-10.1); CARBON DIOXIDE 27.5 mmol/L (21.0-32.0); CREATININE - SERUM 1.3 mg/dL (0.6-1.3); POTASSIUM - SERUM 3.4 mmol/L (3.5-5.1)
[2018-04-02 06:34] LABS: BASOPHILS 0.8 % (0-2); EOSINOPHILS 8.4 % (0-7); HEMATOCRIT 30.9 % (36.0-48.0); HEMOGLOBIN 9.9 g/dL (12-16); IMMATURE GRANULOCYTES 0.2 % (0-5); LYMPHOCYTES 33.4 % (15-50); MCH 27.1 pg (26.0-34.0); MCV 84.7 fL (80.0-100.0); MEAN PLATELET VOLUME 9.3 fL (7.4-10.4); NEUTROPHILS 43.2 % (40-80); PLATELET COUNT 363 10x3/uL (130-400); RBC 3.65 10x6/uL (4.00-5.40); WBC 8.3 10x3/uL (4.8-10.8)
[2018-04-02 08:44] VITALS: BP 149/62
--- NOTE | 2018-04-02 10:39 | NUR ---
PT UP IN CHAIR. AMBULATED IN HALLWAY WITH P.T. WILL CONTINUE TO MONITOR.
--- NOTE | 2018-04-02 10:49 | MORECARE ---
CASE MANAGEMENT DISCHARGE SUMMARY PATIENT: ROSY BANERJEE UNIT: [id number] ADM DATE: 03/28/18 AGE: 87 : [birth year] SEX: F ROOM/BED: D.2126 AUTHOR: TITO,DOC PHYSICIAN: REFERRING PHYSICIAN: MARIN KEENE MD DATE OF SERVICE: 04/02/18 Discharge Plan Patient Name: ROSY BANERJEE Facility: [facility] : 1930 Planned Disposition: Fpc Facility Anticipated Discharge Date: Discharge Date: Expected LOS: Initial Reviewer: [email or web address] Initial Review Date: 03/30/2018 Generated: 04/02/18 11:49 am Comments DCP- Discharge Planning Updated by [email or web address]: Morales Boogie on 04/02/18 9:[address] Patient Name: ROSY BANERJEE Encounter No: [id number] : 1930 Primary Insurance: MEDICARE A & B Anticipated DC Date: Planned Disposition: Fpc Facility External Planned Provider:[facility], MEDICARE REHAB BED Discharge Planning Comments: CM SPOKE TO COTY GALVEZ OF [facility], [place] PROVIDED VIA PHONE, THEY WILL BE ACCEPTING PT BACK TO SKILLED BED AT DISCHARGE. CM FAXED UPDATE TO [facility]. FOR DISCHARGE, FAX DISCHARGE INFORMATION TO [facility] AT [phone]; NURSE REPORT TO BE CALLED TO [facility] AT [phone]. [place] TO ARRANGE VAN TRANSPORTATION. Prepleater: Morales Boogie DCP- Discharge Planning Updated by [id number]: Morales Boogie on 03/30/18 4:[address] Patient Name: ROSY BANERJEE Admission Status: ER Accout number: [id number] Admission Date: 03-28-2018 : 1930 Admission Diagnosis: Attending: MARIN KEENE Current LOS: 2 Anticipated DC Date: Planned Disposition: Fpc Facility Primary Insurance: MEDICARE A & B PLANNED EXTERNAL PROVIDER: [facility], MEDICARE REHAB BED Discharge Planning Comments: CM SPOKE TO COTY GALVEZ OF [facility], SHE HAS VISITED WITH PT AND THEY WILL BE ACCEPTING PT BACK TO SKILLED BED AT DISCHARGE. PT LIVES AT FACILITY. CM SPOKE TO PT IN ROOM TO DISCUSS DISCHARGE PLANS AND NEEDS. PT REPORTS PLAN TO RETURN TO [place] AT DISCHARGE SHE LIVES AT THE "LONG TERM". PT REPORTS THEY SHOULD BRING HER WHEELCHAIR WHEN THEY PICK HER UP. CM FAXED UPDATE TO [facility]. FOR DISCHARGE, FAX DISCHARGE INFORMATION TO [place] AT [phone]; NURSE REPORT TO BE CALLED TO [facility] AT [phone]. [place] TO ARRANGE VAN TRANSPORTATION. Prepleater: Morales Boogie DCPIA - Discharge Planning Initial Assessment Updated by [email or web address]: Morales Boogie on 03/30/18 5:52 pm * Is the patient Alert and Oriented? Yes * How many steps to enter\\exit or inside your home? NONE * PCP DR. TRAN * Pharmacy [facility] * [facility]readmission Environment [facility] * Facility Name [facility] * ADLs Partial Dependent * Partial ADLs (Assistance needed) Ambulation Bathing Medication Management Toileting Transfers * Equipment Cane Nebulizer Oxygen Wheelchair * Other Equipment ALL MEDICAL EQUIPMENT PROVIDED BY FACILITY * List name and contact numbers for known caregivers / representatives who currently or will assist patient after discharge: FEI CARLISLE, DAUGHTER, * Verbal permission to speak to the caregivers and representatives has been obtained from the patient. Yes * Community resources currently utilized None * Please name any agencies selected above. NONE * Additional services required to return to the preadmission environment? No * Can the patient safely return to the preadmission environment? Yes * Has this patient been hospitalized within the prior 30 days at any hospital? Yes Last DP export: 03/30/18 4:58 p Patient Name: ROSY BANERJEE Page [id number] at 1049 All edits/amendments must be made on the electronic document DICTATION DATE: 04/02/181047 FEDERAL MEDIATOR: VIOLET 04/02/181047 RPT#: [id number] DC DATE: STATUS: [facility] [address] [place] [address] END OF REPORT
--- NOTE | 2018-04-02 10:54 | NUR ---
AMBULATES WITH PT ASSIST. UP IN CHAIR WITH CALL LIGHT IN REACH. WILL CONT. PLAN OF CARE.
--- NOTE | 2018-04-02 11:01 | NUR ---
STUDENT DCD AMOR PER PROTOCOL WITH 500CC OP. WILL MONITOR VOID.
[2018-04-02 12:02] VITALS: BP 136/66
[2018-04-02 16:01] VITALS: BP 132/68
[2018-04-02 20:00] VITALS: BP 146/67
[2018-04-03] VITALS: BP 143/68
--- NOTE | 2018-04-03 02:59 | NUR ---
LYING IN BED WITH EYES CLOSED, CALL LIGHT IN REACH. WILL CONTINUE WITH PLAN OF CARE.
--- NOTE | 2018-04-03 03:43 | NUR ---
RESTING WITH EYES CLOSED, RESPERATIONS EVEN, NO S/S DISTRESS NOTED.
[2018-04-03 04:00] VITALS: BP 133/58
[2018-04-03 06:50] LABS: BASOPHILS 1.1 % (0-2); EOSINOPHILS 8.8 % (0-7); HEMATOCRIT 30.8 % (36.0-48.0); IMMATURE GRANULOCYTES 0.3 % (0-5); LYMPHOCYTES 27.7 % (15-50); MCH 27.2 pg (26.0-34.0); MCHC 32.5 g/dL (31.0-37.0); MCV 83.7 fL (80.0-100.0); MEAN PLATELET VOLUME 8.4 fL (7.4-10.4); MONOCYTES 13.3 % (2-11); NEUTROPHILS 48.8 % (40-80); PLATELET COUNT 333 10x3/uL (130-400); RBC 3.68 10x6/uL (4.00-5.40); RDW 13.8 % (11.5-14.5); WBC 9.7 10x3/uL (4.8-10.8)
[2018-04-03 06:52] LABS: ANION GAP 11.7 mmol/L (8-16); CALCIUM 9.3 mg/dL (8.5-10.1); CREATININE - SERUM 1.4 mg/dL (0.6-1.3); POTASSIUM - SERUM 3.7 mmol/L (3.5-5.1)
[2018-04-03 09:47] VITALS: BP 120/57
[2018-04-03] MEDS ORDERED: BUMEX2 MG PO (10:57)
--- NOTE | 2018-04-03 11:26 | NUR ---
PT C/O MARQUIS PINO MORTGAGE LOAN OFFICER ORIGINATOR STATES ORDER FLONASE.
--- NOTE | 2018-04-03 12:50 | MORECARE ---
CASE MANAGEMENT DISCHARGE SUMMARY PATIENT: ROSY BANERJEE UNIT: [id number] ADM DATE: 03/28/18 AGE: 87 : [birth year] SEX: F ROOM/BED: D.4546 AUTHOR: TITO,DOC PHYSICIAN: REFERRING PHYSICIAN: MARIN KEENE MD DATE OF SERVICE: 04/03/18 Discharge Plan Patient Name: ROSY BANERJEE Facility: [facility]:[place] : 1930 Planned Disposition: Assisted Facility Anticipated Discharge Date: Discharge Date: Expected LOS: Initial Reviewer: [email or web address] Initial Review Date: 03/30/2018 Generated: 04/03/18 1:50 pm Comments DCP- Discharge Planning Updated by [email or web address]: Urmila Gonzalez on 04/03/18 11:[address] SPOKE WITH COTY FROM [facility], SHE STATED THAT THE [facility] WOULD BE HERE TO MASSAGE OPERATOR THE PATIENT BETWEEN 1430 AND 1500. NURSE REPORT TO BE CALLED TO [facility] @ [phone]. THIS INFORMATION WAS DELIVERED TO ARON MADERA, BEDSIDE NURSE ON A STICKY NOTE. FRANTZ STATED HE WOULD FAX DISCHARGE INFORMATION. DCP- Discharge Planning Updated by [id number]: Morales Boogie on 04/02/18 9:[address] Patient Name: ROSY BANERJEE Encounter No: [id number] : 1930 Primary Insurance: MEDICARE A & B Anticipated DC Date: Planned Disposition: Assisted Facility External Planned Provider:[facility], MEDICARE REHAB BED Discharge Planning Comments: CM SPOKE TO COTY GALVEZ OF [facility], [place] PROVIDED VIA PHONE, THEY WILL BE ACCEPTING PT BACK TO SKILLED BED AT DISCHARGE. CM FAXED UPDATE TO [facility]. FOR DISCHARGE, FAX DISCHARGE INFORMATION TO [place] AT [phone]; NURSE REPORT TO BE CALLED TO [facility] AT [phone]. [place] TO ARRANGE VAN TRANSPORTATION. Corporate Travel Consultant: Morales Boogie DCP- Discharge Planning Updated by [email or web address]: Morales Boogie on 03/30/18 4:[address] Patient Name: CLEDA LAFEVERS Admission Status: ER Accout number: [id number] Admission Date: 03-28-2018 : 1930 Admission Diagnosis: Attending: MARIN KEENE Current LOS: 2 Anticipated DC Date: Planned Disposition: Assisted Facility Primary Insurance: MEDICARE A & B PLANNED EXTERNAL PROVIDER: [facility], MEDICARE REHAB BED Discharge Planning Comments: CM SPOKE TO COTY GALVEZ OF [facility], SHE HAS VISITED WITH PT AND THEY WILL BE ACCEPTING PT BACK TO SKILLED BED AT DISCHARGE. PT LIVES AT FACILITY. CM SPOKE TO PT IN ROOM TO DISCUSS DISCHARGE PLANS AND NEEDS. PT REPORTS PLAN TO RETURN TO [place] AT DISCHARGE SHE LIVES AT THE "RESIDENTIAL". PT REPORTS THEY SHOULD BRING HER WHEELCHAIR WHEN THEY PICK HER UP. CM FAXED UPDATE TO [facility]. FOR DISCHARGE, FAX DISCHARGE INFORMATION TO [place] AT [phone]; NURSE REPORT TO BE CALLED TO [facility] AT [phone]. [place] TO ARRANGE VAN TRANSPORTATION. Corporate Travel Consultant: Morales Boogie DCPIA - Discharge Planning Initial Assessment Updated by [email or web address]: Morales Boogie on 03/30/18 5:52 pm * Is the patient Alert and Oriented? Yes * How many steps to enter\\exit or inside your home? NONE * PCP DR. TRAN * Pharmacy [facility] * Preadmission Environment Assisted Facility * Facility Name [facility] * ADLs Partial Dependent * Partial ADLs (Assistance needed) Ambulation Bathing Medication Management Toileting Transfers * Equipment Cane Nebulizer Oxygen Wheelchair * Other Equipment ALL MEDICAL EQUIPMENT PROVIDED BY FACILITY * List name and contact numbers for known caregivers / representatives who currently or will assist patient after discharge: FEI CARLISLE, DAUGHTER, * Verbal permission to speak to the caregivers and representatives has been obtained from the patient. Yes * Community resources currently utilized None * Please name any agencies selected above. NONE * Additional services required to return to the preadmission environment? No * Can the patient safely return to the preadmission environment? Yes * Has this patient been hospitalized within the prior 30 days at any hospital? Yes Last DP export: 04/02/18 9:49 a Patient Name: ROSY BANERJEE Page 85629 at 1250 All edits/amendments must be made on the electronic document DICTATION DATE: 04/03/18 125 GAS SPECIALIST: VIOLET 04/03/18 1250 RPT#: [id number] DC DATE: STATUS: ADM IN [facility] [address] [place] [address] END OF REPORT
--- NOTE | 2018-04-03 13:16 | MORECARE ---
CASE MANAGEMENT DISCHARGE SUMMARY PATIENT: ROSY BANERJEE UNIT: [id number] ADM DATE: 03/28/18 AGE: 87 : [birth year] SEX: F ROOM/BED: D.7126 AUTHOR: TITO,DOC PHYSICIAN: REFERRING PHYSICIAN: MARIN KEENE MD DATE OF SERVICE: 04/03/18 Discharge Plan Patient Name: ROSY BANERJEE [facility] : 1930 Planned Disposition: Shelter Facility Anticipated Discharge Date: 04/03/18 Discharge Date: Expected LOS: 6 Initial Reviewer: [email or web address] Initial Review Date: 03/30/2018 Generated: 04/03/18 2:15 pm Comments DCP- Discharge Planning Updated by [email or web address]: Morales Boogie on 04/03/18 12:[address] SPOKE WITH COTY FROM [facility], SHE STATED THAT THE [facility] WOULD BE HERE TO REVERSER THE PATIENT BETWEEN 1430 AND 1500. NURSE REPORT TO BE CALLED TO [facility] @ [phone]. THIS INFORMATION WAS DELIVERED TO ARON AMDERA, BEDSIDE NURSE ON A STICKY NOTE. FRANTZ STATED HE WOULD FAX DISCHARGE INFORMATION. Appended by Morales Boogie on 04/03/2018 13:10 CARGO AGENT: CM RECEIVED DISCHARGE ORDERS, SPOKE TO PT IN ROOM WHO IS IN AGREEMENT WITH DISCHARGE BACK "HOME" TO [facility] TODAY. PT WILL CALL HER [facility] AND LET HIM KNOW THE [facility] IS PICKING HER UP AND NOT TO WORRY ABOUT COMING FOR HER TODAY. IMPORTANT MESSAGE FROM MEDICARE PROVIDED AND EXPLAINED. CM FAXED DISCHARGE INFORMATION TO [facility] AT [phone]; NURSE REPORT TO BE CALLED [facility] AT [phone]. [facility] TO [facility] TRANSPORTATION FOR BETWEEN 1430 AND 1500 HOURS TODAY. Planning Specialist: Morales Boogie DCP- Discharge Planning Updated by [id number]: Morales Boogie on 04/02/18 9:[address] Patient Name: ROSY BANERJEE Encounter No: [id number] : 1930 Primary Insurance: MEDICARE A & B Anticipated DC Date: Planned Disposition: Shelter Facility External Planned Provider:[facility], MEDICARE REHAB BED Discharge Planning Comments: CM SPOKE TO COTY GALVEZ OF [facility], [place]ATE PROVIDED VIA PHONE, THEY WILL BE ACCEPTING PT BACK TO SKILLED BED AT DISCHARGE. CM FAXED UPDATE TO [facility]. FOR DISCHARGE, FAX DISCHARGE INFORMATION TO [facility] AT [phone]; NURSE REPORT TO BE CALLED TO [facility] AT [phone]. [facility] TO [facility]ANGE [facility] TRANSPORTATION. Planning Specialist: Morales Boogie DCP- Discharge Planning Updated by [email or web address]: Morales Boogie on 03/30/18 4:[address] Patient Name: ROSY BANERJEE Admission Status: ER Accout number: [id number] Admission Date: 03-28-2018 : 1930 Admission Diagnosis: Attending: MARIN KEENE Current LOS: 2 Anticipated DC Date: Planned Disposition: Shelter Facility Primary Insurance: MEDICARE A & B PLANNED EXTERNAL PROVIDER: [facility], MEDICARE REHAB BED Discharge Planning Comments: CM SPOKE TO COTY GALVEZ OF [facility], SHE HAS VISITED WITH PT AND THEY WILL BE ACCEPTING PT BACK TO SKILLED BED AT DISCHARGE. PT LIVES AT FACILITY. CM SPOKE TO PT IN ROOM TO DISCUSS DISCHARGE PLANS AND NEEDS. PT REPORTS PLAN TO RETURN TO [facility] AT DISCHARGE SHE LIVES AT THE [facility]". PT REPORTS THEY SHOULD BRING HER WHEELCHAIR WHEN THEY PICK HER UP. CM FAXED UPDATE TO [facility]. FOR DISCHARGE, FAX DISCHARGE INFORMATION TO [facility] AT [phone]; NURSE REPORT TO BE CALLED TO [facility] AT [phone]. [facility] TO ARRANGE VAN TRANSPORTATION. Planning Specialist: Morales Boogie DCPIA - Discharge Planning Initial Assessment Updated by [email or web address]: Morales Boogie on 03/30/18 5:52 pm * Is the patient Alert and Oriented? Yes * How many steps to enter\\exit or inside your home? NONE * PCP DR. TRAN * Pharmacy [facility] * Preadmission Environment Shelter Facility * Facility Name [facility] * ADLs Partial Dependent * Partial ADLs (Assistance needed) Ambulation Bathing Medication Management Toileting Transfers * Equipment Cane Nebulizer Oxygen Wheelchair * Other Equipment ALL MEDICAL EQUIPMENT PROVIDED BY FACILITY * List name and contact numbers for known caregivers / representatives who currently or will assist patient after discharge: FEI CARLISLE, DAUGHTER, * Verbal permission to speak to the caregivers and representatives has been obtained from the patient. Yes * Community resources currently utilized None * Please name any agencies selected above. NONE * Additional services required to return to the preadmission environment? No * Can the patient safely return to the preadmission environment? Yes * Has this patient been hospitalized within the prior 30 days at any hospital? Yes Coverage Notice Reviewer: [email or web address] Noah Boogie Notice Issued Date-Time: 04/03/2018 12:55 Notice Type: IM Discharge Notice Notice Delivered To: Patient Relationship to Patient: Mass Spectrometry Specialist Name: Delivery Method: HAND - Hand Delivered Zaynab Days: Prior Verbal Notification: Recipient Understood Notice: Yes Recipient Signature: Yes Med Rec Note Co-signed by Attending: Coverage Notice Comment: Last DP export: 04/03/18 11:50 a Patient Name: ROSY BANERJEE Page 35417 at 1316 All edits/amendments must be made on the electronic document DICTATION DATE: 04/03/18 1315 CHIP TESTER: VIOLET 04/03/18 1315 RPT#: [id number] DC DATE: STATUS: ADM IN [facility] [address] [place] [address] END OF REPORT
--- NOTE | 2018-04-03 13:50 | NUR ---
PT STATES SHE IS NOT GOING TO RIDE THE TRANSPORT BUS THAT HER SON IS ON HIS WAY TO COME GET HER AND TAKE HER.
--- NOTE | 2018-04-03 13:50 | NUR ---
LEFT FA 20G IV DC'D WITH CATH INTACT. TELEMETRY DC'D.
--- NOTE | 2018-04-03 13:58 | NUR ---
REPORT CALLED TO ALEXYS AT [facility] AND STATED TO HER PT'S SON IS GOING TO PICK HER UP FROM HERE AND BRING HER THEIR. SHE VERBALIZED UNDERSTANDING.
--- NOTE | 2018-04-03 14:00 | NUR ---
PT REFUSING TO WEAR O2 AT 2L VIA NC ON RIDE HOME TO THE HALF-WAY. PT STATES "I'M FINE WITH OUT IT."
--- NOTE | 2018-04-03 14:06 | NUR ---
DISCHARGE INSTRUCTIONS GIVEN TO PT AND QUESTIONS ANSWERED. CHART COPY SIGNED.
--- NOTE | 2018-04-03 14:10 | NUR ---
WAITING FOR PHARMACY TO BRING FLONASE. CALLED PHARMACY AGAIN TO BRING IT AND THEY STATED IT'S ON THE CART.
--- NOTE | 2018-04-03 14:20 | NUR ---
FLONASE AND EYE DROPS GIVEN TO PT TO TAKE HOME.
--- NOTE | 2018-04-03 15:03 | NUR ---
PT LEFT WITH [facility] VIA WC.
== END 2018-04-03 15:03 | DRG 291 ==
LOC: D.ER 15:22 → D.M2 20:07 → D.EDHOLD 20:07 → D.M2 20:36
PROVIDERS: Family Medicine; ADMIT Internal Medicine Nephrology
DX: I11.0 Hypertensive heart disease with heart failure (principal); J96.01 Acute respiratory failure with hypoxia; E87.1 Hypo-osmolality and hyponatremia; I50.33 Acute on chronic diastolic (congestive) heart failure; I08.3 Combined rheumatic disorders of mitral, aortic and tricuspid valves; I27.20 Pulmonary hypertension, unspecified; E78.5 Hyperlipidemia, unspecified; I25.10 Atherosclerotic heart disease of native coronary artery without angina pectoris; E11.9 Type 2 diabetes mellitus without complications; E21.0 Primary hyperparathyroidism

== ENCOUNTER 2018-04-25 20:05 | Inpatient (IN) | payer MEDICARE, OTHER ==
[~2018-04-25] VITALS: Ht 160 cm; Wt 71.7 kg
[~2018-04-25 20:05] MED LIST changes: +BUMEX2 MG PO; +FUROSEMIDE20 MG PO; +ZYLOPRIM300 MG PO
--- NOTE | 2018-04-25 20:31 | NUR ---
PT GIVE BLANKETS AND NON SKID SOCKS.
--- NOTE | 2018-04-25 21:26 | NUR ---
PT ASSISTED UP TO BEDSIDE COMMODE.
[2018-04-25 21:41] LABS: HEMATOCRIT 25.5 % (36.0-48.0); HEMOGLOBIN 8.2 g/dL (12-16); MCH 26.9 pg (26.0-34.0); MCHC 32.2 g/dL (31.0-37.0); MCV 83.6 fL (80.0-100.0); RBC 3.05 10x6/uL (4.00-5.40); RDW 15.2 % (11.5-14.5); WBC 6.8 10x3/uL (4.8-10.8)
[2018-04-25 22:08] LABS: PLATELET COUNT 6 10x3/uL (130-400)
[2018-04-25 22:15] LABS: EOSINOPHILS 12 % (0-7); LYMPHOCYTES 33 % (15-50); MONOCYTES 2 % (2-11); NEUTROPHILS 53 % (40-80); PLATELET ESTIMATE DECREASED
[2018-04-25 22:34] LABS: APPEARANCE CLEAR (CLEAR); COLOR YELLOW (YELLOW)
[2018-04-25 22:35] LABS: BILIRUBIN NEGATIVE (NEGATIVE); GLUCOSE NEGATIVE (NEGATIVE); KETONE NEGATIVE (NEGATIVE); NITRITE NEGATIVE (NEGATIVE); PROTEIN TRACE mg/dL (NEGATIVE); UROBILINOGEN NORMAL (NORMAL)
[2018-04-25 22:49] LABS: ALBUMIN 2.8 g/dL (3.4-5.0); ALKALINE PHOSPHATASE 100 U/L (46-116); ALT (SGPT) 18 U/L (10-68); BILIRUBIN - TOTAL 0.26 mg/dL (0.2-1.3); CALC OSMOLALITY 266 mosm/kg (275-300); CALCIUM 9.7 mg/dL (8.5-10.1); CARBON DIOXIDE 27.9 mmol/L (21.0-32.0); CHLORIDE - SERUM 95 mmol/L (98-107); CREATININE - SERUM 1.6 mg/dL (0.6-1.3); GLUCOSE 143 mg/dL (74-106); POTASSIUM - SERUM 4.8 mmol/L (3.5-5.1); SODIUM 128 mmol/L (136-145); UREA NITROGEN 35 mg/dL (7-18); eGFR NON AFRICAN AMERICAN 32 mL/min (90-120)
[2018-04-25 22:56] LABS: CKMB 0.4 U/L (0.0-3.6); CREATINE KINASE 6 UL (21-215); MAGNESIUM - SERUM 2.1 mg/dL (1.8-2.4); PRO BNP 2773 pg/mL (0-450); TROPONIN-I < 0.017 ng/mL (0.000-0.060)
--- NOTE | 2018-04-25 23:26 | NUR ---
LAB AT PT'S BEDSIDE DRAWING BLOOD CULTURES.
--- NOTE | 2018-04-26 00:04 | NUR ---
PT ASSISTED UP IN BED, PT REQUEST SOCKS BE TAKEN OFF BECAUSE THEY HURT. FAMILY AT PT'S BEDSIDE, CALL LIGHT IN REACH. WILL CONTINUE TO MONITOR.
[2018-04-26 00:32] LABS: % SATURATION 15 % (15-55); IRON 43 ug/dl (35-150); TOTAL IRON BIND CAPACITY 273 ug/dl (260-445); UNSAT IRON BIND CAPACITY 230 ug/dl (150-375)
[2018-04-26 00:46] LABS: FERRITIN 99 ng/mL (3-244); LDH 107 U/L (81-234)
--- NOTE | 2018-04-26 01:15 | NUR ---
RECIEVED TO FLOOR VIA BED, TRANSFER TO BED IN ROOM. ACCOMPANIED BY HOSPITAL STAFF AND 2 DAUGHTERS. A&OX4. 3L O2 HUMIDIFIED IN USED. MODERATE WEAKNESS TO LOWER EXTREMETIES. REFUSES NON-SKID SOCKS DUE TO PAIN IN LEGS FROM PITTING EDEMA. REFUSED SCDs. LEELA ALARM IN USE AND FUCTIONING.
[2018-04-26 02:46] VITALS: BP 178/73; BMI 28.0
[2018-04-26] MEDS ORDERED: LISINOPRIL5 MG PO (03:38)
[2018-04-26] MEDS ORDERED: ZOLOFT50 MG PO (03:48)
[2018-04-26] MEDS ORDERED: TRAZODONE HCL150 MG PO (03:51)
[2018-04-26] MEDS ORDERED: ISOSORBIDE DINI10 MG PO (03:52)
[2018-04-26] MEDS ORDERED: HYDROCODON-ACE1 EAC7 PO (03:54)
[2018-04-26 04:50] VITALS: BP 171/60
[2018-04-26 05:11] LABS: ANION GAP 10.4 mmol/L (8-16); BASOPHILS 2.3 % (0-2); CALCIUM 9.8 mg/dL (8.5-10.1); CARBON DIOXIDE 26.2 mmol/L (21.0-32.0); CREATININE - SERUM 1.4 mg/dL (0.6-1.3); HEMATOCRIT 27.7 % (36.0-48.0); HEMOGLOBIN 8.8 g/dL (12-16); IMMATURE GRANULOCYTES 0.7 % (0-5); LYMPHOCYTES 22.4 % (15-50); MCH 26.7 pg (26.0-34.0); MCHC 31.8 g/dL (31.0-37.0); MCV 83.9 fL (80.0-100.0); MONOCYTES 17.8 % (2-11); NEUTROPHILS 50.8 % (40-80); PHOSPHOROUS 2.7 mg/dL (2.5-4.9); POTASSIUM - SERUM 4.6 mmol/L (3.5-5.1); RDW 15.2 % (11.5-14.5)
[2018-04-26 05:12] LABS: WBC 9.9 10x3/uL (4.8-10.8)
[2018-04-26 05:14] LABS: PLATELET COUNT 15 10x3/uL (130-400)
--- NOTE | 2018-04-26 08:10 | NUR ---
The patient is awake and alert. She is pleasant she says she can not breath well. Her edema is 3-4 +, she refuses her nonskid socks and SCD's.
--- NOTE | 2018-04-26 09:30 | NUR ---
MORNING ASSESSMENT COMPLETE. SEE ASSESSMENT FLOWSHEET FOR FURHTER DETAILS. PT LYING IN BED AAO X4 TO PERSON, PLACE, TIME, AND SIUATION. DENIES NEEDS AT THIS TIME. CL IN REACH.
[2018-04-26 13:23] VITALS: BP 139/65
[2018-04-26 13:31] VITALS: BMI 27.9
[2018-04-26 14:03] LABS: PATH REVIEW PERIPHERAL SMEAR REVIEWED
--- NOTE | 2018-04-26 14:03 | MORECARE ---
CASE MANAGEMENT DISCHARGE SUMMARY PATIENT: ROSY BANERJEE UNIT: [id number] ADM DATE: 04/25/18 AGE: 87 : [birth year] SEX: F ROOM/BED: D.[facility] AUTHOR: GENESIS FRANCIS PHYSICIAN: REFERRING PHYSICIAN: TE CABA MD DATE OF SERVICE: 04/26/18 Discharge Plan Patient Name: ROSY BANERJEE Facility: [facility]:[place] : 1930 Planned Disposition: [facility] Facility w Plan Readm Anticipated Discharge Date: Discharge Date: Expected LOS: Initial Reviewer: [email or web address] Initial Review Date: 04/26/2018 Generated: 04/26/18 3:03 pm DCPIA - Discharge Planning Initial Assessment Updated by [email or web address]: Naomi Gonzalez on 04/26/18 2:01 pm * Is the patient Alert and Oriented? Yes * How many steps to enter\exit or inside your home? 0/0 * PCP Dr. Caba * [facility] * Preadmission Environment [facility] * Facility Name [facility] * ADLs Total Dependent * Equipment Cane Nebulizer Oxygen Wheelchair * List name and contact numbers for known caregivers / representatives who currently or will assist patient after discharge: Candace Todd [facility] - [phone] * Verbal permission to speak to the caregivers and representatives has been obtained from the patient. Yes * Additional services required to return to the preadmission environment? No * Can the patient safely return to the preadmission environment? Yes * Has this patient been hospitalized within the prior 30 days at any hospital? Yes Patient Name: ROSY BANERJEE Page [id number] at 1403 All edits/amendments must be made on the electronic document DICTATION DATE: 04/26/181402 WOOD PILER: VIOLET 04/26/181402 RPT#: [id number] DC DATE: STATUS: ADM IN [facility] [address] [place] [address] END OF REPORT
--- NOTE | 2018-04-26 14:11 | MORECARE ---
CASE MANAGEMENT DISCHARGE SUMMARY PATIENT: ROSY BANERJEE UNIT: [id number] ADM DATE: 04/25/18 AGE: 87 : [birth year] SEX: F ROOM/BED: D.2234 AUTHOR: TITO,DOC PHYSICIAN: REFERRING PHYSICIAN: TE CABA MD DATE OF SERVICE: 04/26/18 Discharge Plan Patient Name: ROSY BANERJEE Facility: [facility]:[place] : 1930 Planned Disposition: [facility] w Plan Readm Anticipated Discharge Date: Discharge Date: Expected LOS: Initial Reviewer: [email or web address] Initial Review Date: 04/26/2018 Generated: 04/26/18 3:11 pm Comments DCP- Discharge Planning Updated by [id number]: Naomi Gonzalez on 04/26/18 1:[address] Patient Name: ROSY BANERJEE Admission Status: ER Accout number: [id number] Admission Date: 04-25-2018 : 1930 Admission Diagnosis: Attending: TE CABA Current LOS: 1 Anticipated DC Date: Planned Disposition: [facility] w Plan Readm Primary Insurance: MEDICARE A & B Discharge Planning Comments: CM met with patient to discuss discharge planning. She lives at [facility] and states she has for about 3 years. States she plans on returning there at discharge. She states that they have everything there that she needs. CM will continue to follow and assist with discharge planning/needs. Md Pediatric Allergist: Naomi Gonzalez DCPIA - Discharge Planning Initial Assessment Updated by [email or web address]: Naomi Gonzalez on 04/26/18 2:01 pm * Is the patient Alert and Oriented? Yes * How many steps to enter\exit or inside your home? 0/0 * PCP Dr. Caba * [facility] * Preadmission Environment Custodial Long Term * Facility Name [facility] * ADLs Total Dependent * Equipment Cane Nebulizer Oxygen Wheelchair * List name and contact numbers for known caregivers / representatives who currently or will assist patient after discharge: Candace Perez - DTR - [phone] * Verbal permission to speak to the caregivers and representatives has been obtained from the patient. Yes * Additional services required to return to the preadmission environment? No * Can the patient safely return to the preadmission environment? Yes * Has this patient been hospitalized within the prior 30 days at any hospital? Yes Last DP export: 04/26/18 1:03 p Patient Name: ROSY BANERJEE Page [id number] at 1411 All edits/amendments must be made on the electronic document DICTATION DATE: 04/26/181410 FRAME PULLEY MORTISING MACHINE OPERATOR: VIOLET 04/26/181410 RPT#: [id number] DC DATE: STATUS: ADM IN [facility] [address] [place] [address] END OF REPORT
[2018-04-26 15:45] VITALS: Ht 160 cm; Wt 71.7 kg
[2018-04-26 16:28] VITALS: BP 129/73
[2018-04-26 17:44] LABS: INR 0.92 (0.85-1.17); PROTIME 11.9 SECONDS (11.6-15.0)
[2018-04-26 17:46] LABS: D-DIMER-QUANTITATIVE 3.38 ug/mLFEU (0.20-0.54)
[2018-04-26 20:00] VITALS: BP 118/69; BP 166/79
--- NOTE | 2018-04-26 22:30 | NUR ---
SUPINE IN BED, HOB AT 90 DEGREES, APPEARS TO BE RESTING COMFORTABLY. 3.5L O2 IN USE, RESPIRATIONS 19. WI CONTINUE TO MONITOR.
[2018-04-27] VITALS: BP 145/79
--- NOTE | 2018-04-27 01:36 | NUR ---
I have reviewed this patient and I concur with the Shift Assessment completed by the Licensed Practical Nurse today this shift.
[2018-04-27 04:00] VITALS: BP 147/69
[2018-04-27 05:27] LABS: HEMATOCRIT 26.6 % (36.0-48.0); HEMOGLOBIN 8.6 g/dL (12-16); MCH 26.8 pg (26.0-34.0); MCHC 32.3 g/dL (31.0-37.0); MCV 82.9 fL (80.0-100.0); RBC 3.21 10x6/uL (4.00-5.40); RDW 15.3 % (11.5-14.5); WBC 11.1 10x3/uL (4.8-10.8)
[2018-04-27 05:28] LABS: PLATELET COUNT 9 10x3/uL (130-400)
[2018-04-27 05:39] LABS: ALBUMIN 3.1 g/dL (3.4-5.0); ANION GAP 10.9 mmol/L (8-16); BILIRUBIN - TOTAL 0.82 mg/dL (0.2-1.3); CALCIUM 9.9 mg/dL (8.5-10.1); CARBON DIOXIDE 26.4 mmol/L (21.0-32.0); CHOL - HDL RATIO 5.1 ratio (2.3-4.1); CREATININE - SERUM 1.3 mg/dL (0.6-1.3); LDL-HDL RATIO 3.2 ratio (1.5-3.5); POTASSIUM - SERUM 4.3 mmol/L (3.5-5.1); PROTEIN - SERUM 9.3 g/dL (6.4-8.2); THYROID STIMULATING HORMONE 2.89 uIU/mL (0.36-3.74)
--- NOTE | 2018-04-27 08:12 | NUR ---
SITTING ON SIDE OF BED, SHORT OF BREATH, 02 PRESENT VIA NC 4LPM, ASSITED TO BED SIDE COMMODE, LOWER LEFT LEG +2 PITTING EDEMA, RESTLESS, REFUSES TO WEAR NON-SLIP SOCKS, BED LOWERED AND LOCKED, LEELA ALARM ON, CALL LIGHT WITHIN REACH. CPOC
[2018-04-27 08:39] LABS: BASOPHILS 1 % (0-2); EOSINOPHILS 1 % (0-7); LYMPHOCYTES 17 % (15-50); MONOCYTES 8 % (2-11); NEUTROPHILS 70 % (40-80); PLATELET ESTIMATE DECREASED
[2018-04-27 09:21] LABS: FOLATE (FOLIC ACID) - SERUM 8.6 ng/mL (>3.0)
[2018-04-27 09:35] VITALS: BP 119/110
--- NOTE | 2018-04-27 11:36 | MORECARE ---
CASE MANAGEMENT DISCHARGE SUMMARY PATIENT: ROSY BANERJEE UNIT: [id number] ADM DATE: 04/25/18 AGE: 87 : [birth year] SEX: F ROOM/BED: D.2234 AUTHOR: TITO,DOC PHYSICIAN: REFERRING PHYSICIAN: TE CABA MD DATE OF SERVICE: 04/27/18 Discharge Plan Patient Name: ROSY BANERJEE Facility: [facility]:[place] : 1930 Planned Disposition: [facility] w Plan Readm Anticipated Discharge Date: Discharge Date: Expected LOS: Initial Reviewer: [id number] Initial Review Date: 04/26/2018 Generated: 04/27/18 12:35 pm Comments DCP- Discharge Planning Updated by [email or web address]: Naomi Gonzalez on 04/26/18 1:[address] Patient Name: ROSY BANERJEE Admission Status: ER Accout number: [id number] Admission Date: 04-25-2018 : 1930 Admission Diagnosis: Attending: TE CABA Current LOS: 1 Anticipated DC Date: Planned Disposition: [facility] w Plan Readm Primary Insurance: MEDICARE A & B Discharge Planning Comments: CM met with patient to discuss discharge planning. She lives at [facility] and states she has for about 3 years. States she plans on returning there at discharge. She states that they have everything there that she needs. CM will continue to follow and assist with discharge planning/needs. Drilling Inspector: Naomi Gonzalez DCPIA - Discharge Planning Initial Assessment Updated by [email or web address]: Naomi Gonzalez on 04/26/18 2:01 pm * Is the patient Alert and Oriented? Yes * How many steps to enter\exit or inside your home? 0/0 * PCP Dr. Caba * [facility] * Preadmission Environment Skilled Nursing Long Term * Facility Name [facility] * ADLs Total Dependent * Equipment Cane Nebulizer Oxygen Wheelchair * List name and contact numbers for known caregivers / representatives who currently or will assist patient after discharge: Candace Perez DTR - [phone] * Verbal permission to speak to the caregivers and representatives has been obtained from the patient. Yes * Additional services required to return to the preadmission environment? No * Can the patient safely return to the preadmission environment? Yes * Has this patient been hospitalized within the prior 30 days at any hospital? Yes External Providers External Provider: [facility](provides inp Next Contact Date: Service Request Date: Service Type: Resolution: Reviewer: Comments: Last DP export: 04/26/18 1:11 p Patient Name: ROSY BANERJEE Page [phone] at 1136 All edits/amendments must be made on the electronic document DICTATION DATE: 04/27/18 1135 CREAM DIPPER: VIOLET 04/27/18 1135 RPT#: [id number] DC DATE: STATUS: ADM IN [facility] [address] [place] [address] END OF REPORT
--- NOTE | 2018-04-27 11:45 | MORECARE ---
CASE MANAGEMENT DISCHARGE SUMMARY PATIENT: ROSY BANERJEE UNIT: [id number] ADM DATE: 04/25/18 AGE: 87 : [birth year] SEX: F ROOM/BED: D.2234 AUTHOR: TITO,DOC PHYSICIAN: REFERRING PHYSICIAN: TE CABA MD DATE OF SERVICE: 04/27/18 Discharge Plan Patient Name: ROSY BANERJEE Facility: [facility]:[place] : 1930 Planned Disposition: [facility] Facility w Plan Readm Anticipated Discharge Date: Discharge Date: Expected LOS: Initial Reviewer: [email or web address] Initial Review Date: 04/26/2018 Generated: 04/27/18 12:45 pm Comments DCP- Discharge Planning Updated by [email or web address]: Naomi Gonzalez on 04/27/18 10:[address] Received an order for Hospice. Dr. Caba states he would like her to have inpatient hospice, he states he has discussed this with his son. I called her daughter, Candace, and she states she has talked with her brother and she is on her way to the hospital. I called Jason and informed of order. Clinical and order faxed to [facility]. CM will continue to follow and assist with discharge planning/needs. DCP- Discharge Planning Updated by [email or web address]: Naomi Gonzalez on 04/26/18 1:[address] Patient Name: ROSY BANERJEE Admission Status: ER Accout number: [id number] Admission Date: 04-25-2018 : 1930 Admission Diagnosis: Attending: TE CABA Current LOS: 1 Anticipated DC Date: Planned Disposition: [facility] Facility w Plan Readm Primary Insurance: MEDICARE A & B Discharge Planning Comments: CM met with patient to discuss discharge planning. [facility] and states she has for about 3 years. States she plans on returning there at discharge. She states that they have everything there that she needs. CM will continue to follow and assist with discharge planning/needs. Public Relations Intern: Naomi Gonzalez DCPIA - Discharge Planning Initial Assessment Updated by [email or web address]: Naomi Gonzalez on 04/26/18 2:01 pm * Is the patient Alert and Oriented? Yes * How many steps to enter\exit or inside your home? 0/0 * PCP Dr. aCba * Pharmacy [facility] * Preadmission Environment Preparator Senior Care * Facility Name [facility] * ADLs Total Dependent * Equipment Cane Nebulizer Oxygen Wheelchair * List name and contact numbers for known caregivers / representatives who currently or will assist patient after discharge: Candace Todd DTR - [phone] * Verbal permission to speak to the caregivers and representatives has been obtained from the patient. Yes * Additional services required to return to the preadmission environment? No * Can the patient safely return to the preadmission environment? Yes * Has this patient been hospitalized within the prior 30 days at any hospital? Yes Last DP export: 04/27/18 10:36 a Patient Name: ROSY BANERJEE Page 36715 at 1145 All edits/amendments must be made on the electronic document DICTATION DATE: 04/27/18 114 TRAILERS [employer] MOTOR HOMES SALESPERSON: VIOLET 04/27/18 1144 RPT#: [id number] DC DATE: STATUS: ADM IN [facility] [address] [place] [address] END OF REPORT
--- NOTE | 2018-04-27 12:07 | NUR ---
100ML OF DARK BROWN EMESIS, CONTINUES TO C/O ABOUT PAIN AND SHORTNESS OF BREATH, FAMILY IS PRESENT IN ROOM, HOSPICE CONSULT HAS BEEN PLACED, NOW A DNR, DENIES ANY OTHER NEEDS OR DISCOMFORTS, BED LOWERED AND LOCKED, CALL LIGHT WITHIN REACH. CPOC
[2018-04-27 12:45] VITALS: BP 163/84
--- NOTE | 2018-04-27 13:43 | MORECARE ---
CASE MANAGEMENT DISCHARGE SUMMARY PATIENT: ROSY BANERJEE UNIT: [id number] ADM DATE: 04/25/18 AGE: 87 : [birth year] SEX: F ROOM/BED: D.2234 AUTHOR: TITO,DOC PHYSICIAN: REFERRING PHYSICIAN: TE CABA MD DATE OF SERVICE: 04/27/18 Discharge Plan Patient Name: ROSY BANERJEE Facility: [facility]:[place] : 1930 Planned Disposition: [facility] w Plan Readm Anticipated Discharge Date: Discharge Date: Expected LOS: Initial Reviewer: [email or web address] Initial Review Date: 04/26/2018 Generated: 04/27/18 2:43 pm Comments DCP- Discharge Planning Updated by [email or web address]: Naomi Gonzalez on 04/27/18 12:[address] Jason with [facility] here and speaking with daughter. CM will continue to follow and assist with discharge planning/needs. DCP- Discharge Planning Updated by [email or web address]: Naomi Gonzalez on 04/27/18 10:[address] Received an order for Hospice. Dr. Caba states he would like her to have inpatient hospice, he states he has discussed this with his son. I called her daughter, Candace, and she states she has talked with her brother and she is on her way to the hospital. I called Jason and informed of order. Clinical and order faxed to [facility]. CM will continue to follow and assist with discharge planning/needs. DCP- Discharge Planning Updated by [email or web address]: Naomi Gonzalez on 04/26/18 1:[address] Patient Name: ROSY BANERJEE Admission Status: ER Accout number: [id number] Admission Date: 04-25-2018 : 1930 Admission Diagnosis: Attending: TE CABA Current LOS: 1 Anticipated DC Date: Planned Disposition: [facility] w Plan Readm Primary Insurance: MEDICARE A & B Discharge Planning Comments: CM met with patient to discuss discharge planning. She lives at [facility] and states she has for about 3 years. States she plans on returning there at discharge. She states that they have everything there that she needs. CM will continue to follow and assist with discharge planning/needs. Cutting Tool Sharpener: Naomi Gonzalez DCPIA - Discharge Planning Initial Assessment Updated by [email or web address]: Naomi Gonzalez on 04/26/18 2:01 pm * Is the patient Alert and Oriented? Yes * How many steps to enter\exit or inside your home? 0/0 * PCP Dr. Caba * [facility] * Preadmission Environment Milling Planer Operator [facility] * Facility Name [facility] * ADLs Total Dependent * Equipment Cane Nebulizer Oxygen Wheelchair * List name and contact numbers for known caregivers / representatives who currently or will assist patient after discharge: Candace Todd DTR - [phone] * Verbal permission to speak to the caregivers and representatives has been obtained from the patient. Yes * Additional services required to return to the preadmission environment? No * Can the patient safely return to the preadmission environment? Yes * Has this patient been hospitalized within the prior 30 days at any hospital? Yes Last DP export: 04/27/18 10:45 a Patient Name: ROSY BANERJEE Page 37655 at 1343 All edits/amendments must be made on the electronic document DICTATION DATE: 04/27/18 134 INSTRUMENT REPAIR TECHNICIAN: VIOLET 04/27/18 1342 RPT#: [id number] DC DATE: STATUS: ADM IN [facility] [address] [place] [address] END OF REPORT
--- NOTE | 2018-04-27 14:57 | EC ---
PATIENT:ROSY BANERJEE DATE OF SERVICE: 04/25/18 SEX: F MEDICAL RECORD: [id number] DATE OF : [birth year] LOCATION:[facility] AGE OF PATIENT: 87 ADMISSION DATE: 04/25/18 REFERRING PHYSICIAN: INTERPRETING PHYSICIAN: AZAM CRUZ MD ECHOCARDIOGRAM REPORT ECHO CHARGES 4 ECHO COMPLETE Date: 04/26/18 CLINICAL DIAGNOSIS: DIASTOLIC HEART FAILURE ECHOCARDIOGRAPHIC MEASUREMENTS (adult normal given) AC root (d.<3.7cm) 2.4 cm LV Septum d (<1.2 cm> 1.5 cm Valve Excursion 0.9 cm LV Septum (systole) 1.8 cm Left Atria (s.<4.0cm> 3.8 cm LVPW d(<1.2cm) 1.8 cm RV (d.<2.3cm) 4.1 cm LVPW (sytole) 2.0 cm LV diastole(<5.6CM) 3.8 cm MV E-F(>70mm/sec) cm LV systole 2.9 cm LVOT Diameter 1.8 cm MV exc.(>10mm) 1.2 cm Est.ejection fraction (50-75%) % DOPPLER: LVIT cm/sec A 210 cm/sec E 231 cm/sec LA cm/sec RVSP 96 mmHg LVOT 125 cm/sec AOP1/2T m/s Asc. Ao 238 cm/sec RVOT 81 cm/sec RA cm/sec PA 147 cm/sec AV Gradient Peak 2257 mmHg AV Mean 1045 mmHg AV Area 1.3 cm MV Gradient Peak 25.90mmHg MV Mean 13.58mmHg MV Area cm COMMENTS: Cellophane Bath Mixer: Tate LICEA Wrapper Dipper: Tate Oswald TAPE# PACS Pericardial Effusion N DATE OF SERVICE: 04/26/2018 FINDINGS: 1. Left ventricular chamber size is within normal limits. Left ventricular systolic function is normal. Overall ejection fraction estimated at 55%. 2. Left atrium, right atrium, and right ventricular chamber sizes are within normal limits. 3. Valvular structures: Aortic valve demonstrates mild calcific aortic stenosis, valve area calculates to 1.3 cm-squared with a gradient of 22 mm across the valve. The remaining valvular structures have normal structure and ECHOCARDIOGRAM REPORT [id number] ROSY BANERJEE motion. 4. Doppler interrogation reveals moderate mitral regurgitation, moderate tricuspid regurgitation, no other valvular insufficiency or stenosis. Pulmonary systolic pressure is significantly elevated, estimated 96 mmHg. 5. No evidence of pericardial effusion or left ventricular thrombus. TRANSINT:[id number] Voice Confirmation ID: [id number] DOCUMENT ID: [id number] AZAM CRUZ MD at 1457 CC: [id number] DICTATION DATE: 04/26/18 1518 CORPORATE RESPONSIBILITY OFFICER: 04/26/18 2248 ADM IN [place] [address] [place] [address]
[2018-04-29 16:07] LABS: HEPARIN INDUCED PLATELET AB 0.293 OD (0.000-0.400)
== END 2018-04-27 18:10 | disposition hospice, inpatient (51) | DRG 813 ==
LOC: D.ER 20:05 → D.MS 23:59
PROVIDERS: Family Medicine; Internal Medicine Hematology & Oncology; ADMIT Family Medicine; ATTEND Family Medicine
DX: D69.6 Thrombocytopenia, unspecified (principal); J18.9 Pneumonia, unspecified organism; J96.21 Acute and chronic respiratory failure with hypoxia; I50.33 Acute on chronic diastolic (congestive) heart failure; E87.1 Hypo-osmolality and hyponatremia; N17.9 Acute kidney failure, unspecified; I13.0 Hypertensive heart and chronic kidney disease with heart failure and stage 1 through stage 4 chronic kidney disease, or unspecified chronic kidney disease; I11.0 Hypertensive heart disease with heart failure; E11.65 Type 2 diabetes mellitus with hyperglycemia; K21.9 Gastro-esophageal reflux disease without esophagitis; I25.10 Atherosclerotic heart disease of native coronary artery without angina pectoris; M81.0 Age-related osteoporosis without current pathological fracture; E11.22 Type 2 diabetes mellitus with diabetic chronic kidney disease; N18.9 Chronic kidney disease, unspecified

== ENCOUNTER 2018-04-27 18:12 | Inpatient (IN) | payer OTHER ==
[~2018-04-27] VITALS: Ht 160 cm; Wt 71.8 kg
[~2018-04-27 18:12] MED LIST changes: +ISOSORBIDE DINI10 MG PO; +TRAZODONE HCL150 MG PO
--- NOTE | 2018-04-27 19:02 | NUR ---
SITTING UP RIGHT IN BED, ON 4LPM NC, MOUTH BREATHER, NEW ADMIT TO [facility] PATIENT, FAMILY PRESENT IN ROOM, NO IV ACCESS, DENIES ANY CURRENT NEEDS OR DISCOMFORTS, BED LOWERED AND LOCKED, CALL LIGHT WITHINR EACH CPOC
[2018-04-27 20:00] VITALS: BP 163/79
[2018-04-28 01:18] VITALS: BP 163/79; Ht 160 cm; Wt 71.8 kg
--- NOTE | 2018-04-28 01:33 | NUR ---
I have reviewed this patient and I concur with the Shift Assessment completed by the Licensed Practical Nurse today this shift. ADMISSION ASSESSMENT COMPLETE.
[2018-04-28 09:15] VITALS: BP 143/83
--- NOTE | 2018-04-28 10:15 | NUR ---
ALWAKE WITH VERBAL STIMULATION WITHOUT DISTRESS NOTED. REPOSITIONED FOR COMFORT WITH FAMILY PRESENT. O2 4 LITERS N/C. ENCOURAGED TO USE CALL LIGHT FOR ASSIST. [facility] NURSE HERE. PT. REQUESTING MT AT THIS TIME.
[2018-04-28 20:00] VITALS: BP 130/60; BP 149/76
--- NOTE | 2018-04-29 04:28 | NUR ---
I have reviewed this patient and I concur with the Shift Assessment completed by the Licensed Practical Nurse today this shift.
--- NOTE | 2018-04-29 11:16 | NUR ---
AWAKE AND RESPONSIVE ALERT AND ORIENTED TO X3 . OS 4L N/C MORPNINE GIVEN FOR GENERALIZED PAIN AND ATIVAN FOR ANXIETY NEEDED.FAMILY PRESENT AND COMFORTABLE AT THIS TIME. ENCOURAGED TO USE CALL LIGHT FOR ASSSIT.
[2018-04-29 20:00] VITALS: BP 154/71
--- NOTE | 2018-04-30 01:45 | NUR ---
PT AWAKE, REQUESTS SIP OF WATER. ASKS DAUGHTER WHERE SHE IS AT. WILL CONTINUE TO MONITOR.
--- NOTE | 2018-04-30 04:13 | NUR ---
I have reviewed this patient and I concur with the Shift Assessment completed by the Licensed Practical Nurse today this shift.
[2018-04-30 09:31] VITALS: BP 153/78
[2018-04-30 20:00] VITALS: BP 160/67
--- NOTE | 2018-05-01 08:43 | NUR ---
RESTING IN BED WITH NO S/S OF DISTRESS, CALL LIGHT IN REACH. CHECKED OFTEN FOR NEEDS AND SAFETY.
[2018-05-01 09:36] VITALS: BP 144/72
--- NOTE | 2018-05-01 14:01 | MORECARE ---
CASE MANAGEMENT DISCHARGE SUMMARY PATIENT: ROSY BANERJEE UNIT: [id number] ADM DATE: 04/27/18 AGE: 87 : [birth year] SEX: F ROOM/BED: D.2234 AUTHOR: GENESIS FRANCIS PHYSICIAN: REFERRING PHYSICIAN: CHIRAG BAUTISTA MD DATE OF SERVICE: 05/01/18 Discharge Plan Patient Name: ROSY BANERJEE Facility: [facility]:[place] : 1930 Planned Disposition: Nursing Facility DICK Cert Anticipated Discharge Date: Discharge Date: Expected LOS: Initial Reviewer: [email or web address] Initial Review Date: 05/01/2018 Generated: 05/01/18 3:01 pm Comments DCP- Discharge Planning Updated by [email or web address]: Naomi Gonzalez on 05/01/18 12:[address] CLIENT LIVES AT [facility]. SHE IS GIP INPATIENT HOSPICE HERE WITH [facility]. Patient Name: ROSY BANERJEE Page [phone] at 1401 All edits/amendments must be made on the electronic document DICTATION DATE: 05/01/18 1401 FINISH PATCHER: VIOLET 05/01/18 1401 RPT#: [id number] DC DATE: STATUS: ADM IN [facility] [address] [place] [address] END OF REPORT
[2018-05-01 20:00] VITALS: BP 153/65
--- NOTE | 2018-05-02 04:16 | NUR ---
REC'D CHGE OF SHIFT HOB SITTING POSITION DTR AT BEDSIDE.BREATHING SHALLOW.PARTIALLY OPENS EYES WITH DEEP VERBAL STIMULATION AMOR PATENT DRAINING JESSICA COLORED URINE.WILL CONTINUE TO MONITOR FOR ANY CHGES. AND FOLLOW CURRENT PLAN OF CARE.HOSPICE PROTOCOL REMAINS IN EFFECT.
--- NOTE | 2018-05-02 04:42 | NUR ---
I have reviewed this patient and I concur with the Shift Assessment completed by the Licensed Practical Nurse today this shift.
[2018-05-02 08:50] VITALS: BP 1009/56
--- NOTE | 2018-05-02 09:31 | NUR ---
PATIENT IN BED WITH HOB ELEVATED 45 DEG. SKIN W/D TO TOUCH, COLOR PINK, RESP. LABORED AT 16.LEFT ARM 3+ EDEMA NOTED. AMOR PATENT AND DRAINING YELLOW URINE. DAUGHTER AT BEDSIDE. C/L WITHIN REACH AND SR'S UP X'S 2.
--- NOTE | 2018-05-02 16:43 | NUR ---
I have reviewed this patient and I concur with the Shift Assessment completed by the Licensed Practical Nurse today this shift.
[2018-05-02 20:00] VITALS: BP 177/49
--- NOTE | 2018-05-02 20:00 | NUR ---
RESTING IN BED NONRESPONSIVE, DAUGHTER AT BEDSIDE, DISCUSSED NEED FOR MORPHINE Q2 HRS AND ATIVAN Q4 SCHEDULED, DAUGHTER STATES SHE NEEDS TO GET IT, INSTRUCTED WILL GIVE ORDERED, CALL OLVIN DIEGO
--- NOTE | 2018-05-03 04:35 | NUR ---
CALLED TO ROOM BY DAUGHTER, NO PULSE OR RESPIRATIONS NOTED, [facility] NOTIFIED, CALL RETURNED BY SALLY STATES WILL COME AND PRONOUNCE, WILL TAKE ABOUT 1 HR TO GET HERE
--- NOTE | 2018-05-03 16:29 | MORECARE ---
CASE MANAGEMENT DISCHARGE SUMMARY PATIENT: ROSY BANERJEE UNIT: [id number] ADM DATE: 04/27/18 AGE: 87 : [birth year] SEX: F ROOM/BED: D.2234 AUTHOR: GENESIS FRANCIS PHYSICIAN: REFERRING PHYSICIAN: CHIRAG BAUTISTA MD DATE OF SERVICE: 05/03/18 Discharge Plan Patient Name: ROSY BANERJEE Facility: [facility]:[place] : 1930 Planned Disposition: Nursing Facility DICK Cert Anticipated Discharge Date: Discharge Date: 05/03/2018 Expected LOS: 0 Initial Reviewer: [email or web address] Initial Review Date: 05/01/2018 Generated: 05/03/18 5:29 pm Comments DCP- Discharge Planning Updated by [email or web address]: Naomi Gonzalez on 05/01/18 12:[address] CLIENT LIVES AT [facility]. SHE IS GIP INPATIENT HOSPICE HERE WITH [facility]. Last DP export: 05/01/18 1:01 p Patient Name: ROSY BANERJEE Page [phone] at 1629 All edits/amendments must be made on the electronic document DICTATION DATE: 05/03/181627 PLATFORM SOFTWARE ENGINEER: VIOLET 05/03/181627 RPT#: [id number] DC DATE:05/03/18 STATUS: DIS IN [facility] [address] [place] [address] END OF REPORT
== END 2018-05-03 04:35 | disposition hospice, inpatient (51) | DRG 951 ==
LOC: D.MS 18:12
PROVIDERS: ADMIT Legal Medicine; ATTEND Legal Medicine
DX: Z51.5 Encounter for palliative care (principal)